=== PATIENT | female | born 1945 | race Caucasian/White ===

== ENCOUNTER 2020-07-13 11:18 | Inpatient (IN) | payer MEDICARE ==
[~2020-07-13 11:18] MED LIST: Iopamidol-370 76% 500 ML 1 ML ONE
--- NOTE | 2020-07-13 11:29 | CT ---
Exam: Head CT without contrast HISTORY: Sudden onset right facial droop and slurred speech at 10:00 AM. COMPARISON: 06/08/2009 FINDINGS: Hemorrhage: No intraparenchymal hemorrhage or extra-axial hematoma. Brain parenchyma: Cortical adame-white matter differentiation is preserved. No mass effect or midline shift. Basilar cisterns are patent.Extensive white matter hypodensities due to chronic small vessel ischemic change. Ventricular system: Ventricles and sulci are patent and symmetric. Calvarium: Intact. Sinuses and mastoid air cells: Adequate aeration. IMPRESSION: 1. No acute intracranial process 2. Results study discussed with Dr. Douglass 07/13/2020 at 11:25 AM Code CR
[2020-07-13 11:49] LABS: #Basophils 0.1 thou/uL (0.0-0.2); #Eosinphils 0.2 thou/uL (0.0-0.7); #Lymphocytes 2.5 thou/uL (1.20-3.40); #Monocytes 0.6 thou/uL (0.11-0.59); #Neutrophils 4.3 thou/uL (1.40-6.50); %Basophils 0.9 % (0.0-1.0); %Eosinophils 2.7 % (0.0-10.0); %Lymphocytes 32.3 % (21.0-51.0); %Monocytes 8.1 % (0.0-10.0); %Neutrophils 56.1 % (42.0-75.0); Hemoglobin 12.2 g/dL (12.0-16.0); Mean Corpuscular HGB CONC 34.7 g/dL (32.0-36.0); Mean Corpuscular Hemoglobin 30.5 pg (27.0-31.0); Mean Corpuscular Volume 87.9 fL (78.0-98.0); Mean Platelet Volume 6.5 fL (7.4-10.4); Platelet Count 319 thou/uL (130-400); RBC Distribution Width 11.9 % (11.5-14.5); Red Blood Cell (RBC) Count 3.99 mill/uL (4.20-5.40); White Blood Cell (WBC) Count 7.7 thou/uL (4.8-10.8)
[2020-07-13 12:02] LABS: PTT 27.7 sec (22.9-36.1); Prothrombin Time 13.4 sec (12.0-14.7)
--- NOTE | 2020-07-13 12:11 | RAD ---
EXAM: CHEST ONE VIEW HISTORY: Level 1 stroke alert. COMPARISON: 06/08/2009 FINDINGS: Cardiac silhouette is magnified by projection. Pulmonary vasculature is within normal limits. No cons olidation or pleural fluid is seen. There is mild prominence of the perihilar interstitial densities, this may be related to portable technique. Vascular calcifications are seen in the thoraci c aorta. Osseous structures have a normal appearance. IMPRESSION: Mild prominence of perihilar interstitial densities probably related to accentuation by portable tech nique. There is no consolidation or pleural fluid seen.
[2020-07-13 12:23] LABS: ALT (SGPT) 25 U/L (8-55); AST (SGOT) 29 U/L (5-34); Alkaline Phosphatase 60 U/L (40-110); Anion Gap 14 mmol/L (10-20); BUN (Urea Nitrogen) 18 mg/dL (9.8-20.1); Bilirubin, Total 0.9 mg/dL (0.2-1.2); CK (CPK) 303 U/L (29-168); Calc. Creatinine Clearance 0 mL/min (70-130); Calcium 9.2 mg/dL (7.8-10.44); Carbon Dioxide 21 mmol/L (23-31); Chloride 104 mmol/L (98-107); Glucose 109 mg/dL (83-110); Sodium 135 mmol/L (136-145)
--- NOTE | 2020-07-13 12:24 | CT ---
CT HEAD WITHOUT IV CONTRAST COMPARISON: 07/13/2020 1123 oh HISTORY: Post TPA administration. Neural status change. Augmentation changes. TECHNIQUE: Axial CT imaging at 5 mm intervals from vertex through skull base without contrast FINDINGS: Intravenous contrast administration was performed on CTA of the head on 07/13/2020 at 1132 hours. Ther e is persistent opacification of the vascular structures. This limits evaluation for subtle subarachnoid hemorrhage, but no definite intraparenchymal or extra-axial hemorrhage is appreciated. T here is no evidence of an acute infarction, hemorrhage, mass effect, or midline shift. Diminished attenuation is again seen in periventricular white matter likely reflective of chronic small vessel i schemic changes. Skull base has a normal CT appearance. Visualized paranasal sinuses are clear. Osseous structures appear intact.No other interval change. IMPRESSION: 1. No acute intracranial abnormality demonstrated. 2. Residual contrast within the vascular structures due to recent contrasted study which limits evalu ation for subtle subarachnoid hemorrhage. However, no obvious significant subarachnoid hemorrhage is visualized. No intraparenchymal hemorrhage is seen. 3. Chronic small vessel ischemic changes.
[2020-07-13 12:32] LABS: Globulin 2.6 g/dL (2.4-3.5); Protein, Total 6.6 g/dL (5.8-8.1)
[2020-07-13] MEDS ORDERED: Ondansetron PF 4 MG/2 ML Vial ONE (13:32)
[2020-07-13] MEDS ORDERED: Morphine 4 MG/ML VIAL ONE (13:32)
[2020-07-13 14:41] LABS: SARS-CoV-2 NAA Rapid Test Not Detected (NotDetected)
[2020-07-13 15:41] VITALS: BMI 24.2
[2020-07-13] MEDS ORDERED: Communication Order-Pharmacy FS SCH (15:48)
[2020-07-13] MEDS ORDERED: niCARdipine 25 MG in Sodium Chloride 0.9% 250 ML 250 ML IVPB PRN (15:48)
[2020-07-13] MEDS ORDERED: hydrALAZINE 20 MG/ML VIAL SLOW IVP PRN (15:48)
[2020-07-13] MEDS ORDERED: Ondansetron PF 4 MG/2 ML Vial IVP PRN (15:48)
[2020-07-13] MEDS ORDERED: Acetaminophen 325 MG TAB PO PRN (15:48)
[2020-07-13] MEDS ORDERED: Labetalol HCl 100 MG/20 ML VIAL SLOW IVP PRN (15:48)
[2020-07-13] MEDS ORDERED: hydrALAZINE 20 MG/ML VIAL ONE (15:58)
[2020-07-13] MEDS: Sodium Chloride 0.9% 1,000 ML IV SCH (17:48)
--- NOTE | 2020-07-13 18:39 | PDOC.HHP ---
Hospitalist HPI Difficulty speaking, Faical droop History of Present Illness: Patient is 74-year-old female with PMH of HTN, CAD, ?Renal artery stenosis, and hx of multiple TIA who presents to the ED with right facial droop and difficulty speaking that started around 10:00 AM this morning. Per , patient was also tearful and weak at that time and required communications assistant to walk. ED Course: On arrival to the ED NIHSS:6. CT head showed no acute intracranial abnormalities. CTA head and neck showed no hemodynamically significant stenosis. Patient received tPA while in the ED. CT head was repeated as patient reported severe RODRIGUEZ after she received tPA, it showed no obvious significant hemorrhage. Allergies/Adverse Reactions: Allergy/AdvReac Type Severity Reaction Status Date / Time codeine Allergy Verified 07/13/20 16:13 trifluoperazine Allergy Verified 07/13/20 16:13 [From Stelazine] Home Medications: Medication Instructions Recorded Confirmed Type Carvedilol [Coreg] 6.25 mg PO BID 07/13/20 07/13/20 History Cholecalciferol (Vitamin D3) 1,000 units PO DAILY 07/13/20 07/13/20 History [Vitamin D3] Clopidogrel Bisulfate [Clopidogrel] 75 mg PO DAILY 07/13/20 07/13/20 History Cyclobenzaprine [Flexeril] 10 mg PO PRN PRN 07/13/20 07/13/20 History Rosuvastatin [Crestor] 20 mg PO HS 07/13/20 07/13/20 History Zolpidem Tartrate [Ambien] 10 mg PO HS 07/13/20 07/13/20 History Past History: PMHx: HTN, CAD, ?Renal artery stenosis, and hx of multiple TIA PSHx: hysterectomy FHx: Sister: CVA, Father: CVA Social: no smoking, alcohol or drug use Hospitalist HPI ROS Constitutional: denies: fever, chills Respiratory: denies: shortness of breath Cardiovascular: denies: chest pain Gastrointestinal: reports: nausea. denies: vomiting Genitourinary: denies: dysuria Other: Positive for headache All other systems reviewed; all pertinent +/- noted in HPI/Subj Hospitalist Exam Vitals: Vital Signs (12 hours) Temp Pulse Resp BP Pulse Ox 07/13/20 16:29 65 07/13/20 16:00 97.8 F 07/13/20 15:59 65 07/13/20 15:49 97.6 F 65 18 100 07/13/20 15:31 100 07/13/20 15:23 100 07/13/20 15:11 97.6 F 65 16 107/88 95 Weight Weight 145 lb 8.081 oz Most Recent Monitor Data Heart Rate from ECG 80 NIBP 165/60 NIBP BP-Mean 95 Respiration from ECG 19 SpO2 100 General Appearance: NAD General - other findings: Tearful Eye: PERRL ENT: dry oral mucosa Neck: supple Heart: RRR, no murmur Respiratory: CTAB, no tachypnea Gastrointestinal: soft, non-tender, non-distended Extremities: no clubbing Skin: no rashes Neurological: normal sensation to touch Neurological - other findings: Minimal expressive aphasia, minimal right-sided facial droop Musculoskeletal: normal strength Psychiatric: oriented to person, oriented to place Psychiatric - other findings: Tearful Hospitalist Results Result Diagrams: 07/13/20 11:40 07/13/20 11:40 Lab results: Laboratory Last Values WBC 7.7 thou/uL (4.8-10.8) 07/13/20 11:40 RBC 3.99 mill/uL (4.20-5.40) L 07/13/20 11:40 Hgb 12.2 g/dL (12.0-16.0) 07/13/20 11:40 Hct 35.1 % (36.0-47.0) L 07/13/20 11:40 MCV 87.9 fL (78.0-98.0) 07/13/20 11:40 MCH 30.5 pg (27.0-31.0) 07/13/20 11:40 MCHC 34.7 g/dL (32.0-36.0) 07/13/20 11:40 RDW 11.9 % (11.5-14.5) 07/13/20 11:40 Plt Count 319 thou/uL (130-400) 07/13/20 11:40 MPV 6.5 fL (7.4-10.4) L 07/13/20 11:40 Neutrophils % 56.1 % (42.0-75.0) 07/13/20 11:40 Lymphocytes % 32.3 % (21.0-51.0) 07/13/20 11:40 Monocytes % 8.1 % (0.0-10.0) 07/13/20 11:40 Eosinophils % 2.7 % (0.0-10.0) 07/13/20 11:40 Basophils % 0.9 % (0.0-1.0) 07/13/20 11:40 Neutrophils # 4.3 thou/uL (1.40-6.50) 07/13/20 11:40 Lymphocytes # 2.5 thou/uL (1.20-3.40) 07/13/20 11:40 Monocytes # 0.6 thou/uL (0.11-0.59) H 07/13/20 11:40 Eosinophils # 0.2 thou/uL (0.0-0.7) 07/13/20 11:40 Basophils # 0.1 thou/uL (0.0-0.2) 07/13/20 11:40 PT 13.4 sec (12.0-14.7) 07/13/20 11:40 INR 1.0 07/13/20 11:40 APTT 27.7 sec (22.9-36.1) 07/13/20 11:40 Sodium 135 mmol/L (136-145) L 07/13/20 11:40 Potassium 4.0 mmol/L (3.5-5.1) 07/13/20 11:40 Chloride 104 mmol/L (98-107) 07/13/20 11:40 Carbon Dioxide 21 mmol/L (23-31) L 07/13/20 11:40 Anion Gap 14 mmol/L (10-20) 07/13/20 11:40 BUN 18 mg/dL (9.8-20.1) 07/13/20 11:40 Creatinine 1.01 mg/dL (0.6-1.1) 07/13/20 11:40 Estimated GFR (MDRD) 54 07/13/20 11:40 Glucose 109 mg/dL (83-110) 07/13/20 11:40 POC Glucose 101 mg/dL (70-100) H 07/13/20 11:27 Calcium 9.2 mg/dL (7.8-10.44) 07/13/20 11:40 Total Bilirubin 0.9 mg/dL (0.2-1.2) 07/13/20 11:40 AST 29 U/L (5-34) 07/13/20 11:40 ALT 25 U/L (8-55) 07/13/20 11:40 Alkaline Phosphatase 60 U/L (40-110) 07/13/20 11:40 Creatine Kinase 303 U/L (29-168) H 07/13/20 11:40 Troponin I 0.025 ng/mL (< 0.028) 07/13/20 11:40 Serum Total Protein 6.6 g/dL (5.8-8.1) 07/13/20 11:40 Albumin 4.0 g/dL (3.4-4.8) 07/13/20 11:40 Globulin 2.6 g/dL (2.4-3.5) 07/13/20 11:40 Albumin/Globulin Ratio 1.5 g/dL (1.2-2.2) 07/13/20 11:40 Influenza A RNA INAAT Not Detected (NotDetected) 07/13/20 13:15 Influenza B RNA INAAT Not Detected (NotDetected) 07/13/20 13:15 SARS-CoV-2 Rap RNA(RT-PCR) Not Detected (NotDetected) 07/13/20 13:15 Chest x-ray Status: image reviewed by me CT scan - head Status: image reviewed by oh Hospitalist H&P A/P (1) TIA (transient ischemic attack) Code(s): G45.9 - TRANSIENT CEREBRAL ISCHEMIC ATTACK, UNSPECIFIED Status: Acute Assessment and Plan: Patient's right-sided facial droop and expressive aphasia improved with tPA. Plan: -frequent Neuro checks -permissive HTN -no anticoagulation for 24 hr after tPA -Lipitor -MRI brain wo contrast, Echo -Neurology consulted (2) HTN (hypertension) Code(s): I10 - ESSENTIAL (PRIMARY) HYPERTENSION Status: Chronic Assessment and Plan: -permissive HTN due to above
[2020-07-13] MEDS: HYDROcodone/Acetaminophen 5/325 mg Tablet PO PRN (20:28)
[2020-07-13] MEDS ORDERED: Atorvastatin Calcium 40 MG TAB PO SCH (21:00)
[2020-07-14] MEDS: Sodium Chloride 0.9% 1,000 ML IV SCH ×2 (02:14→13:29)
[2020-07-14] MEDS ORDERED: Lorazepam 2 MG/ML VIAL SLOW IVP PRN (12:06)
--- NOTE | 2020-07-14 12:52 | CT ---
Exam: Head CT without contrast HISTORY: Status post TPA COMPARISON: 07/13/2020 FINDINGS: Hemorrhage: No intraparenchymal hemorrhage or extra-axial hematoma. Brain parenchyma: Cortical adame-white matter differentiation is preserved. No mass effect or midline shift. Basilar cisterns are patent.Stable chronic small vessel ischemic changes of the white matter Ventricular system: Ventricles and sulci are patent and symmetric. Calvarium: Intact. Sinuses and mastoid air cells: Adequate aeration. IMPRESSION: 1. No evidence of intracranial hemorrhage 2. Stable white matter hypodensities due to chronic small vessel ischemic changes 3. Cortical adame-white white matter differentiation is preserved.
--- NOTE | 2020-07-14 13:30 | MRI ---
Exam: Brain MRI without contrast HISTORY: Status post TPA 24 hours. CVA. COMPARISON: None FINDINGS: Calvarial marrow signal intensity: Appropriate T1 signal Gradient echo sequence: No hemorrhage Brain parenchyma: No mass, mass effect or midline shift. Brain volume, age-appropriate. Cortical adame-white matter differentiation: Preserved Restricted diffusion: Central arterial flow voids are maintained. Absent restricted diffusion White matter signal intensities:Extensive T2, FLAIR white matter hyperintensities due to chronic smal l vessel ischemic changes Sinuses: Adequate aeration of the paranasal sinuses and mastoid air cells. IMPRESSION: 1. Extensive chronic small vessel ischemic changes of the white matter 2. Absent restricted diffusion. No acute infarct.
--- NOTE | 2020-07-14 13:50 | CON ---
DATE OF CONSULTATION: 07/14/2020 REASON FOR CONSULTATION: Difficulty speaking, facial droop. HISTORY OF PRESENT ILLNESS: Ms. Jalloh is a 74-year-old female with medical history significant for hypertension, coronary artery disease, renal artery stenosis, and history of multiple transient ischemic attack presented to the emergency room with right facial droop and difficulty speaking at 10:00 a.m. on 07/13/2020. Per , the patient was tearful and weak and required assistance to walk. On arrival to the emergency room, her NIH Stroke Scale was 6. CT of the head did not show any acute intracranial pathology. CTA of the head and neck did not show hemodynamically significant stenosis. The patient received tPA, which was completed around 11:42 a.m. and then admitted for stroke workup and management. CT was repeated after she received tPA because she reported severe headache, but there was no hemorrhage. The patient denies nausea, vomiting, headache, chest pain, abdominal pain, recent illness or recent exposure to COVID-19. She does complain of numbness and tingling on the right side of the face with weakness of the right upper extremity. Allergies/Adverse Reactions: Allergy/AdvReac Type Severity Reaction Status Date / Time codeine Allergy Verified 07/13/20 16:13 trifluoperazine Allergy Verified 07/13/20 16:13 [From Stelazine] Home Medications: Medication Instructions Recorded Confirmed Type Carvedilol [Coreg] 6.25 mg PO BID 07/13/20 07/13/20 History Cholecalciferol (Vitamin D3) 1,000 units PO DAILY 07/13/20 07/13/20 History [Vitamin D3] Clopidogrel Bisulfate [Clopidogrel] 75 mg PO DAILY 07/13/20 07/13/20 History Cyclobenzaprine [Flexeril] 10 mg PO PRN PRN 07/13/20 07/13/20 History Rosuvastatin [Crestor] 20 mg PO HS 07/13/20 07/13/20 History Zolpidem Tartrate [Ambien] 10 mg PO HS 07/13/20 07/13/20 History PAST MEDICAL HISTORY: Hypertension, coronary artery disease, renal artery stenosis, history of multiple transient ischemic attacks. PAST SURGICAL HISTORY: Hysterectomy. FAMILY HISTORY: Sister has CVA. Father also has CVA. SOCIAL HISTORY: The patient denies smoking, alcohol, illegal drug use. , lives with her . REVIEW OF SYSTEMS: All systems reviewed and were negative except the pertinent positives and negatives mentioned in the HPI. Vital Signs & Weight: Vital Signs (12 hours) Temp Pulse Ox 07/14/20 13:00 97.9 F 07/14/20 08:16 100 07/14/20 08:00 98.4 F 07/14/20 07:21 100 Weight Weight 149 lb 7.574 oz Most Recent Monitor Data Heart Rate from ECG 83 NIBP 149/70 NIBP BP-Mean 96 Respiration from ECG 17 SpO2 100 I&O: 07/13/20 07/14/20 07/15/20 06:59 06:59 06:59 Intake Total 1702 100 Output Total 975 500 Balance 727 -400 Active Medications Generic Name Dose Route Start Last Admin Trade Name Freq PRN Reason Stop Dose Admin Hydrocodone Bitart/Acetaminophen 1 tab 07/13/20 15:48 07/13/20 20:28 Hydrocodone/Acetaminophen 5/325 Mg Tablet PO 1 tab Q4H PRN Administration Moderate Pain (4-6) Atorvastatin Calcium 80 mg 07/13/20 21:00 07/13/20 20:24 Atorvastatin Calcium 40 Mg Tab PO 80 mg HS SINDI Administration Hydralazine HCl 10 mg 07/13/20 15:48 07/13/20 15:59 Hydralazine 20 Mg/Ml Vial SLOW IVP 10 mg Q4H PRN Administration SBP > 180 or DBP > 105 Sodium Chloride 1,000 mls @ 100 mls/hr 07/13/20 17:30 07/14/20 13:29 Normal Saline 0.9% IV 1,000 mls .Q10H SINDI Administration Lorazepam 1 mg 07/14/20 12:06 07/14/20 12:45 Lorazepam 2 Mg/Ml Vial SLOW IVP 07/14/20 23:59 1 mg ONE PRN Administration MRI ANXIETY Ondansetron HCl 4 mg 07/13/20 15:48 07/13/20 20:28 Ondansetron Pf 4 Mg/2 Ml Vial IVP 4 mg Q6H PRN Administration Nausea/Vomiting PHYSICAL EXAMINATION: GENERAL APPEARANCE: AND. CVS: Regular rate and rhythm. CHEST: Clear. ABDOMEN: Soft. NECK: Supple. NEUROLOGIC: Mental Status: The patient is alert and oriented to person, place and time. Speech is clear. Cranial nerves 2 through 12 intact except 7, right facial droop and V - decreased sensation to light touch in the V1, V2 and V3 distribution. . Motor, muscle tone and bulk are normal. Strength 5/5 bilaterally except right upper extremity 4+/5. Sensory decreased sensation to light touch in the right upper extremity Cerebellar, finger-nose testing intact. Positive right pronator drift. Gait deferred due to patient's decreased sensation to light touch in the right upper extremity. Gait deferred due to patient's safety reason. DATA REVIEWED: We reviewed the labs, were significant for mild hyponatremia on admission at 135. CT scan did not reveal any acute intracranial pathology. Chest x-ray was essentially unremarkable. ASSESSMENT AND PLAN: (1) TIA (transient ischemic attack) Code(s): G45.9 - TRANSIENT CEREBRAL ISCHEMIC ATTACK, UNSPECIFIED Status: Acute (2) Acute metabolic encephalopathy Code(s): G93.41 - METABOLIC ENCEPHALOPATHY Status: Acute (3) HTN (hypertension) Code(s): I10 - ESSENTIAL (PRIMARY) HYPERTENSION Status: Chronic Qualifiers: Hypertension type: essential hypertension Qualified Code(s): I10 - Essential (primary) hypertension (4) HLD (hyperlipidemia) Code(s): E78.5 - HYPERLIPIDEMIA, UNSPECIFIED Status: Chronic Ms. Ashleigh Jalloh is a 74-year-old female who was consulted because of difficulty speaking and stroke-like symptoms including the right- sided focal deficits. She received tPA and has been doing well, and according to her, the deficits have improved since admission. Continue neuro checks every 2 hours. MRI of the brain pending at this time to assess acute intracranial process. Continue telemetry to rule out arrhythmias. Avoid antiplatelets and anticoagulants until 24 hours post tPA. Awaiting head CT 24 hours of tPA. If negative, then start aspirin and statin for secondary stroke prevention. Check hemoglobin A1c, fasting lipid panel, and TSH. Continue home medications. Permissive control of blood pressure at this time. Strict control of blood glucose. Continue aspirin and high- intensity statin for secondary stroke prevention. PT/OT/Speech. Continue medical management per primary team. We will continue to follow. Thank you for the consult. Plan discussed in detail with the patient, at bedside, nursing staff and the primary attending, Dr. Lew. Job ID: [id number] [facility]
--- NOTE | 2020-07-14 15:23 | PDOC.HOSPP ---
- Subjective Encounter Date: 07/14/20 Encounter Time: 15:00 Subjective: f/u for TIA/CVA s/p tPA with CT/MRI brain showing no acute process. c/o some confusion and weakness. States she wants to eat. - Objective Vital Signs & Weight: Vital Signs (12 hours) Temp Pulse Ox 07/14/20 13:00 97.9 F 07/14/20 08:16 100 07/14/20 08:00 98.4 F 07/14/20 07:21 100 Weight Weight 149 lb 7.574 oz Most Recent Monitor Data Heart Rate from ECG 83 NIBP 149/70 NIBP BP-Mean 96 Respiration from ECG 17 SpO2 100 I&O: 07/13/20 07/14/20 07/15/20 06:59 06:59 06:59 Intake Total 1702 100 Output Total 975 500 Balance 727 -400 Result Diagrams: 07/13/20 11:40 07/13/20 11:40 Radiology Reviewed by me: Yes (MRI brain - no acute process, chronic isch changes) EKG Reviewed by me: Yes (Tele - SR) Hospitalist ROS - Medication Medications: Active Medications Generic Name Dose Route Start Last Admin Trade Name Freq PRN Reason Stop Dose Admin Hydrocodone Bitart/Acetaminophen 1 tab 07/13/20 15:48 07/13/20 20:28 Hydrocodone/Acetaminophen 5/325 Mg Tablet PO 1 tab Q4H PRN Administration Moderate Pain (4-6) Atorvastatin Calcium 80 mg 07/13/20 21:00 07/13/20 20:24 Atorvastatin Calcium 40 Mg Tab PO 80 mg HS SINDI Administration Hydralazine HCl 10 mg 07/13/20 15:48 07/13/20 15:59 Hydralazine 20 Mg/Ml Vial SLOW IVP 10 mg Q4H PRN Administration SBP > 180 or DBP > 105 Sodium Chloride 1,000 mls @ 100 mls/hr 07/13/20 17:30 07/14/20 13:29 Normal Saline 0.9% IV 1,000 mls .Q10H SINDI Administration Lorazepam 1 mg 07/14/20 12:06 07/14/20 12:45 Lorazepam 2 Mg/Ml Vial SLOW IVP 07/14/20 23:59 1 mg ONE PRN Administration MRI ANXIETY Ondansetron HCl 4 mg 07/13/20 15:48 07/13/20 20:28 Ondansetron Pf 4 Mg/2 Ml Vial IVP 4 mg Q6H PRN Administration Nausea/Vomiting Hospitalist Exam Vitals: Vital Signs (12 hours) Temp Pulse Ox 07/14/20 13:00 97.9 F 07/14/20 08:16 100 07/14/20 08:00 98.4 F 07/14/20 07:21 100 Weight Weight 149 lb 7.574 oz Most Recent Monitor Data Heart Rate from ECG 83 NIBP 149/70 NIBP BP-Mean 96 Respiration from ECG 17 SpO2 100 General Appearance: NAD, awake alert Eye: PERRL, anicteric sclera ENT: normocephalic atraumatic, no oropharyngeal lesions Neck: supple, symmetric, no JVD, no thyromegaly, no lymphadenopathy Heart: RRR, no gallops, no rubs, normal peripheral pulses Heart - other findings: S1, S2 Respiratory: CTAB, no wheezes, no rales, no ronchi, normal chest expansion Gastrointestinal: soft, non-tender, non-distended, normal bowel sounds, no palpable masses Extremities: no cyanosis, no clubbing, no edema Skin: normal turgor, no lesions Neurological: cranial nerve grossly intact, no new deficit Musculoskeletal: normal tone, generalized weakness Psychiatric: A&O x 3, flat affect Hosp A/P (1) TIA (transient ischemic attack) Code(s): G45.9 - TRANSIENT CEREBRAL ISCHEMIC ATTACK, UNSPECIFIED Status: Acute Plan: Suspected, MRI brain negative, continue Plavix/Crestor (2) Acute metabolic encephalopathy Code(s): G93.41 - METABOLIC ENCEPHALOPATHY Status: Acute Plan: ? Iatrogenic vs HTN encephalopathy, limit sedation/narcotics/psychotropes (3) HTN (hypertension) Code(s): I10 - ESSENTIAL (PRIMARY) HYPERTENSION Status: Chronic Qualifiers: Hypertension type: essential hypertension Qualified Code(s): I10 - Essential (primary) hypertension Plan: Resume home Coreg, serial BP monitoring (4) HLD (hyperlipidemia) Code(s): E78.5 - HYPERLIPIDEMIA, UNSPECIFIED Status: Chronic Plan: Resume home Crestor - Plan plan discussed w/ family, PT/OT, speech therapy, out of bed/ambulate, DVT proph w/SCDs Stable overall Resume home Coreg Resume Crestor WATCH INSPECTOR evaluation OOB/ambulate Transfer to Stroke unit Likely home in am
[2020-07-14] MEDS ORDERED: Cyclobenzaprine 10 MG TAB PO PRN (15:25)
[2020-07-14] MEDS: Rosuvastatin 20 MG TAB PO SCH (20:03)
[2020-07-14] MEDS: Carvedilol 6.25 MG TAB PO SCH (20:03)
[2020-07-15] MEDS: HYDROcodone/Acetaminophen 5/325 mg Tablet PO PRN ×2 (02:47→09:53)
[2020-07-15 05:10] LABS: #Basophils 0.1 thou/uL (0.0-0.2); #Eosinphils 0.3 thou/uL (0.0-0.7); #Monocytes 0.7 thou/uL (0.11-0.59); #Neutrophils 5.1 thou/uL (1.40-6.50); %Basophils 0.8 % (0.0-1.0); %Eosinophils 3.8 % (0.0-10.0); %Lymphocytes 32.5 % (21.0-51.0); %Monocytes 7.5 % (0.0-10.0); %Neutrophils 55.4 % (42.0-75.0); Hemoglobin 11.5 g/dL (12.0-16.0); Mean Corpuscular HGB CONC 34.8 g/dL (32.0-36.0); Mean Corpuscular Hemoglobin 31.1 pg (27.0-31.0); Mean Corpuscular Volume 89.4 fL (78.0-98.0); Mean Platelet Volume 6.5 fL (7.4-10.4); Platelet Count 290 thou/uL (130-400); White Blood Cell (WBC) Count 9.1 thou/uL (4.8-10.8)
[2020-07-15 05:18] LABS: Anion Gap 9 mmol/L (10-20); BUN (Urea Nitrogen) 17 mg/dL (9.8-20.1); Calc. Creatinine Clearance 52 mL/min (70-130); Carbon Dioxide 25 mmol/L (23-31); Chloride 107 mmol/L (98-107); Glucose 111 mg/dL (83-110); Potassium 3.5 mmol/L (3.5-5.1); Sodium 137 mmol/L (136-145)
[2020-07-15] MEDS: Clopidogrel Bisulfate 75 MG TAB PO SCH (09:51)
[2020-07-15] MEDS: Cholecalciferol 1,000 UNITS (25 MCG) TAB PO SCH (09:51)
[2020-07-15] MEDS: Carvedilol 6.25 MG TAB PO SCH ×2 (09:51→20:39)
--- NOTE | 2020-07-15 12:03 | PDOC.NEUPN ---
- Subjective Encounter Date: 07/15/20 Subjective: Ashleigh Jalloh is feeling better today and symptoms have been improved since admission. at bedside. - Objective Vital Signs & Weight: Vital Signs (12 hours) Temp Pulse Resp BP BP BP BP 07/15/20 11:11 97.9 F 63 20 155/68 H 07/15/20 09:51 144/66 H 07/15/20 08:06 97.9 F 66 18 144/66 H 07/15/20 02:45 98.7 F 72 16 144/71 H Pulse Ox 07/15/20 11:11 98 07/15/20 09:51 07/15/20 08:06 97 07/15/20 02:45 95 Weight Weight 146 lb 9.718 oz Most Recent Monitor Data Heart Rate from ECG 75 NIBP 122/56 NIBP BP-Mean 78 Respiration from ECG 12 SpO2 100 I&O: 07/14/20 07/15/20 07/16/20 06:59 06:59 06:59 Intake Total 1702 1294 Output Total 975 500 Balance 727 794 Result Diagrams: 07/15/20 04:51 07/15/20 04:51 Radiology Reviewed by me: Yes EKG Reviewed by me: Yes ROS - Review of Systems Constitutional: denies: fever, chills, sweats, weakness, malaise, other Eyes: denies: pain, vision change, conjunctivae inflammation, eyelid inflammation, redness, other ENT: denies: ear pain, ear discharge, nose pain, nose discharge, nose congestion, mouth pain, mouth swelling, throat pain, throat swelling, other Respiratory: denies: cough, dry, shortness of breath, hemoptysis, SOB with excertion, pleuritic pain, sputum, wheezing, other Gastrointestinal: denies: nausea, vomiting, abdominal pain, diarrhea, constipation, melena, hematochezia, other Genitourinary: denies: dysuria, frequency, incontinence, hematuria, retention, other Musculoskeletal: denies: neck pain, shoulder pain, arm pain, back pain, hand pain, leg pain, foot pain, other Neurological: reports: numbness. denies: weakness, incoordination, change in speech, confusion, seizures, other - Medication Medications: Active Medications Generic Name Dose Route Start Last Admin Trade Name Freq PRN Reason Stop Dose Admin Hydrocodone Bitart/Acetaminophen 1 tab 07/13/20 15:48 07/15/20 09:53 Hydrocodone/Acetaminophen 5/325 Mg Tablet PO 1 tab Q4H PRN Administration Moderate Pain (4-6) Carvedilol 6.25 mg 07/14/20 21:00 07/15/20 09:51 Carvedilol 6.25 Mg Tab PO 6.25 mg BID SINDI Administration Cholecalciferol 1,000 units 07/15/20 09:00 07/15/20 09:51 Cholecalciferol 1,000 Units (25 Mcg) Tab PO 1,000 units DAILY SINDI Administration Clopidogrel Bisulfate 75 mg 07/15/20 09:00 07/15/20 09:51 Clopidogrel Bisulfate 75 Mg Tab PO 75 mg DAILY SINDI Administration Hydralazine HCl 10 mg 07/13/20 15:48 07/13/20 15:59 Hydralazine 20 Mg/Ml Vial SLOW IVP 10 mg Q4H PRN Administration SBP > 180 or DBP > 105 Ondansetron HCl 4 mg 07/13/20 15:48 07/13/20 20:28 Ondansetron Pf 4 Mg/2 Ml Vial IVP 4 mg Q6H PRN Administration Nausea/Vomiting Rosuvastatin Calcium 20 mg 07/14/20 21:00 07/14/20 20:03 Rosuvastatin 20 Mg Tab PO 20 mg HS SINDI Administration - Exam General Appearance: awake alert Eye: PERRL ENT: normocephalic atraumatic Neck: supple Respiratory: CTAB Cardiovascular: RRR Gastrointestinal: soft Extremities: no cyanosis Skin: normal turgor Neurological: no new deficit Musculoskeletal: normal tone, normal strength, no muscle wasting PSYCH: normal affect, normal behavior, A&O x 3 Results - Labs Result Diagrams: 07/15/20 04:51 07/15/20 04:51 Lab results: WBC 9.1 thou/uL (4.8-10.8) 07/15/20 04:51 Hgb 11.5 g/dL (12.0-16.0) L 07/15/20 04:51 Hct 33.0 % (36.0-47.0) L 07/15/20 04:51 MCV 89.4 fL (78.0-98.0) 07/15/20 04:51 Plt Count 290 thou/uL (130-400) 07/15/20 04:51 Neutrophils % 55.4 % (42.0-75.0) 07/15/20 04:51 Sodium 137 mmol/L (136-145) 07/15/20 04:51 Potassium 3.5 mmol/L (3.5-5.1) 07/15/20 04:51 Chloride 107 mmol/L (98-107) 07/15/20 04:51 Carbon Dioxide 25 mmol/L (23-31) 07/15/20 04:51 BUN 17 mg/dL (9.8-20.1) 07/15/20 04:51 Creatinine 1.01 mg/dL (0.6-1.1) 07/15/20 04:51 Glucose 111 mg/dL (83-110) H 07/15/20 04:51 Calcium 8.0 mg/dL (7.8-10.44) 07/15/20 04:51 Total Bilirubin 0.9 mg/dL (0.2-1.2) 07/13/20 11:40 AST 29 U/L (5-34) 07/13/20 11:40 ALT 25 U/L (8-55) 07/13/20 11:40 Alkaline Phosphatase 60 U/L (40-110) 07/13/20 11:40 Creatine Kinase 303 U/L (29-168) H 07/13/20 11:40 Troponin I 0.025 ng/mL (< 0.028) 07/13/20 11:40 Serum Total Protein 6.6 g/dL (5.8-8.1) 07/13/20 11:40 Albumin 4.0 g/dL (3.4-4.8) 07/13/20 11:40 - Radiology Interpretation MRI - head Additional Comment: MRI of the head reviewed which was negative for acute intracranial pathology PN A/P (1) TIA (transient ischemic attack) Code(s): G45.9 - TRANSIENT CEREBRAL ISCHEMIC ATTACK, UNSPECIFIED Status: Acute (2) Acute metabolic encephalopathy Code(s): G93.41 - METABOLIC ENCEPHALOPATHY Status: Acute (3) HLD (hyperlipidemia) Code(s): E78.5 - HYPERLIPIDEMIA, UNSPECIFIED Status: Chronic (4) HTN (hypertension) Code(s): I10 - ESSENTIAL (PRIMARY) HYPERTENSION Status: Chronic Qualifiers: Hypertension type: essential hypertension Qualified Code(s): I10 - Essential (primary) hypertension - Plan Daily Plan: plan discussed w/ family, PT/OT ( at bedside), speech t herapy, out of bed/ambulate Mrs. Jalloh is a 74-year-old female who presented with strokelike symptoms this seems to be improved since admission. Most likely transient ischemic attack. She is status post TPA and has been doing well. MRI of the brain reviewed which was negative for acute intracranial pathology. CTA of the head and neck did not reveal hemodynamically significant stenosis. 2D echocardiogram showed left ventricular ejection fraction 50 to 55%. No thrombus or PFO. Neurochecks every 4 hours. Continue aspirin high intensity statin for secondary stroke prevention. Telemetry to rule out arrhythmias. EEG to evaluate for confusion is ongoing. We will follow up on the results. PT/OT/speech Continue home medications. Strict control of blood pressure and blood glucose. Continue medical management per primary team. DVT prophylaxis Plan and results were discussed in detail with the patient, at bedside and also with the nursing staff.
--- NOTE | 2020-07-15 12:17 | PDOC.HOSPP ---
- Subjective Encounter Date: 07/15/20 Encounter Time: 09:00 Subjective: Patient seen this morning. She has some headache. She lives with her family. She is complaining of left side arm going numb. Is almost like falling asleep. This is not new it happened before as well. - Objective Vital Signs & Weight: Vital Signs (12 hours) Temp Pulse Resp BP BP BP BP 07/15/20 11:11 97.9 F 63 20 155/68 H 07/15/20 09:51 144/66 H 07/15/20 08:06 97.9 F 66 18 144/66 H 07/15/20 02:45 98.7 F 72 16 144/71 H Pulse Ox 07/15/20 11:11 98 07/15/20 09:51 07/15/20 08:06 97 07/15/20 02:45 95 Weight Weight 146 lb 9.718 oz Most Recent Monitor Data Heart Rate from ECG 75 NIBP 122/56 NIBP BP-Mean 78 Respiration from ECG 12 SpO2 100 I&O: 07/14/20 07/15/20 07/16/20 06:59 06:59 06:59 Intake Total 1702 1294 Output Total 975 500 Balance 727 794 Result Diagrams: 07/15/20 04:51 07/15/20 04:51 Hospitalist ROS - Medication Medications: Active Medications Generic Name Dose Route Start Last Admin Trade Name Freq PRN Reason Stop Dose Admin Hydrocodone Bitart/Acetaminophen 1 tab 07/13/20 15:48 07/15/20 09:53 Hydrocodone/Acetaminophen 5/325 Mg Tablet PO 1 tab Q4H PRN Administration Moderate Pain (4-6) Carvedilol 6.25 mg 07/14/20 21:00 07/15/20 09:51 Carvedilol 6.25 Mg Tab PO 6.25 mg BID SINDI Administration Cholecalciferol 1,000 units 07/15/20 09:00 07/15/20 09:51 Cholecalciferol 1,000 Units (25 Mcg) Tab PO 1,000 units DAILY SINDI Administration Clopidogrel Bisulfate 75 mg 07/15/20 09:00 07/15/20 09:51 Clopidogrel Bisulfate 75 Mg Tab PO 75 mg DAILY SINDI Administration Hydralazine HCl 10 mg 07/13/20 15:48 07/13/20 15:59 Hydralazine 20 Mg/Ml Vial SLOW IVP 10 mg Q4H PRN Administration SBP > 180 or DBP > 105 Ondansetron HCl 4 mg 07/13/20 15:48 07/13/20 20:28 Ondansetron Pf 4 Mg/2 Ml Vial IVP 4 mg Q6H PRN Administration Nausea/Vomiting Rosuvastatin Calcium 20 mg 07/14/20 21:00 07/14/20 20:03 Rosuvastatin 20 Mg Tab PO 20 mg HS SINDI Administration Hospitalist Exam Vitals: Vital Signs (12 hours) Temp Pulse Resp BP BP BP BP 07/15/20 11:11 97.9 F 63 20 155/68 H 07/15/20 09:51 144/66 H 07/15/20 08:06 97.9 F 66 18 144/66 H 07/15/20 02:45 98.7 F 72 16 144/71 H Pulse Ox 07/15/20 11:11 98 07/15/20 09:51 07/15/20 08:06 97 07/15/20 02:45 95 Weight Weight 146 lb 9.718 oz Most Recent Monitor Data Heart Rate from ECG 75 NIBP 122/56 NIBP BP-Mean 78 Respiration from ECG 12 SpO2 100 General Appearance: NAD, awake alert Eye: PERRL ENT: normocephalic atraumatic Neck: supple Heart: RRR, normal peripheral pulses Respiratory: CTAB, normal chest expansion Gastrointestinal: soft, normal bowel sounds Neurological: cranial nerve grossly intact, no focal deficits Psychiatric: normal affect, normal behavior, A&O x 3 Hosp A/P - Plan TIA (transient ischemic attack) Code(s): G45.9 - TRANSIENT CEREBRAL ISCHEMIC ATTACK, UNSPECIFIED Status: Acute Plan: Suspected, MRI brain negative, continue Plavix/Crestor (2) Acute metabolic encephalopathy Code(s): G93.41 - METABOLIC ENCEPHALOPATHY Status: Acute Plan: ? 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 Brain MRI showed chronic small vessel ischemic changes of the white matter. -Getting CT cervical spine to rule out any disc degeneration causing nerve impingement etc. Follow-up on TSH A1c lipid panel as well as vitamin D B12 folate Ongoing physical therapy Covid negative
[2020-07-15 13:55] LABS: Hemoglobin A1c 5.4 % (4.0-6.0)
[2020-07-15 14:26] LABS: Vitamin D, 25 Hydroxy 52.3 ng/ml (> 30.0)
--- NOTE | 2020-07-15 14:28 | PDOC.EEG ---
Neurology EEG Report - Report Report: This EEG was performed using 24 channel Solvate video digital EEG machine with 24 disc electrodes. Digital analysis of the EEG was done for Chong and seizure detection which revealed no abnormalities. Background: Ther posterior background rhythm is 10-12 Hz. Minimal reactivity seen with eye opening and closure. Hyperventilation: Not performed Photic stimulation: No significant response Sleep: Drowsiness is observed EEG diagnosis: Normal awake and drowsy EEG.
[2020-07-15 14:32] LABS: Thyroid Stimulating Hormone 2.7923 uIU/mL (0.35-4.94)
--- NOTE | 2020-07-15 15:37 | CT ---
EXAM: CT ANGIOGRAM OF THE NECK INDICATION: Left-sided hemiparesthesia, neck pain, headache and dizziness. COMPARISON: 07/13/2020 TECHNIQUE: CT angiogram of the neck are performed in the axial plane. Three-dimensional reformatted i mages are submitted for interpretation. FINDINGS: POSTCONTRAST SOFT TISSUE NECK CT: Aerodigestive tract:Aerodigestive tract is patent. No mucosal abnormality. No significant change Sinuses: Stable aeration. Orbits: Bilateral ocular lenses implants are appropriately located. Both globes are intact. Retrobulb ar fat is preserved. Symmetric attenuation the optic nerves and ocular rectus muscles. Salivary glands:Stable attenuation. 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 Paraspinal muscles: Symmetric attenuation of the sternocleidomastoid muscles. Appropriate attenuation of the paraspinal muscles. Cervical spine:Vertebral body height is maintained. No fracture. No significant central canal stenosi s or significant neural foraminal narrowing. Limited evaluation by technique. Upper mediastinum and lung apices: No significant interval change. CTA OF THE NECK WITH CONTRAST: Aorta: Stable atherosclerosis. Stable common origin of the carotid arteries. Right carotid artery: Stable atherosclerotic disease. No significant stenosis based upon NASCET crite douglas. Left carotid: Stable atherosclerotic disease. No significant stenosis based upon NASCET criteria. Sta ble mild narrowing of left carotid bifurcation and proximal internal carotid artery due to calcified and noncalcified plaque. Subclavian arteries:6 symmetric and patent Vertebral arteries:Redemonstration of a dominant right vertebral artery. 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 IMPRESSION: 1. No hemodynamically significant stenosis based upon NASCET criteria. 2. No significant interval change. Transcribed Date/Time: 07/15/2020 3:48 PM
[2020-07-15] MEDS: Rosuvastatin 20 MG TAB PO SCH (20:40)
[2020-07-16 05:16] LABS: #Basophils 0.1 thou/uL (0.0-0.2); #Eosinphils 0.5 thou/uL (0.0-0.7); #Lymphocytes 3.2 thou/uL (1.20-3.40); #Monocytes 0.9 thou/uL (0.11-0.59); %Basophils 0.8 % (0.0-1.0); %Eosinophils 4.5 % (0.0-10.0); %Lymphocytes 30.3 % (21.0-51.0); %Neutrophils 56.5 % (42.0-75.0); Hemoglobin 12.2 g/dL (12.0-16.0); Mean Corpuscular HGB CONC 34.9 g/dL (32.0-36.0); Mean Corpuscular Hemoglobin 31.1 pg (27.0-31.0); Mean Corpuscular Volume 89.1 fL (78.0-98.0); Mean Platelet Volume 6.6 fL (7.4-10.4); Platelet Count 297 thou/uL (130-400); Red Blood Cell (RBC) Count 3.91 mill/uL (4.20-5.40); White Blood Cell (WBC) Count 10.6 thou/uL (4.8-10.8)
[2020-07-16 05:37] LABS: Anion Gap 12 mmol/L (10-20); BUN (Urea Nitrogen) 12 mg/dL (9.8-20.1); Calc. Creatinine Clearance 56 mL/min (70-130); Calcium 8.4 mg/dL (7.8-10.44); Carbon Dioxide 22 mmol/L (23-31); Chloride 107 mmol/L (98-107); Cholesterol 136 mg/dl (< 200 Desired); Glucose 108 mg/dL (83-110); HDL Cholesterol 45 mg/dL (>60 Neg Risk); LDL Cholesterol, Calculated 64 mg/dL; Potassium 3.7 mmol/L (3.5-5.1); Sodium 137 mmol/L (136-145); Triglycerides 136 mg/dL (Less than 150)
[2020-07-16] MEDS: Carvedilol 6.25 MG TAB PO SCH ×2 (08:17→21:45)
[2020-07-16] MEDS: Clopidogrel Bisulfate 75 MG TAB PO SCH (08:17)
[2020-07-16] MEDS: Cholecalciferol 1,000 UNITS (25 MCG) TAB PO SCH (08:17)
[2020-07-16] MEDS: HYDROcodone/Acetaminophen 5/325 mg Tablet PO PRN (08:20)
[2020-07-16] MEDS ORDERED: hydrALAZINE 25 MG TAB PO SCH (09:00)
--- NOTE | 2020-07-16 11:58 | PDOC.HOSPP ---
- Subjective Encounter Date: 07/16/20 Encounter Time: 09:10 Subjective: Patient's left hand swollen due to IV access. She also has IV access on the left cubital area; talk to the physical therapist appreciate their input in time patient's blood pressure is quite labile when she is sitting her blood pressure is 140 systolic then when she walks around pressure drop increased to 170 on then drops to 120. Asymptomatic with the dizziness. PT recommended inpatient rehab. Getting TSH random cortisol. - Objective Vital Signs & Weight: Vital Signs (12 hours) Temp Pulse Resp BP BP BP BP 07/16/20 11:01 145/83 H 07/16/20 10:59 145/83 H 160/104 H 185/77 H 07/16/20 07:27 97.8 F 60 16 158/85 H 07/16/20 03:43 97.9 F 76 16 151/76 H Pulse Ox 07/16/20 11:01 07/16/20 10:59 07/16/20 07:27 98 07/16/20 03:43 97 Weight Weight 154 lb 12.232 oz Most Recent Monitor Data Heart Rate from ECG 75 NIBP 122/56 NIBP BP-Mean 78 Respiration from ECG 12 SpO2 100 I&O: 07/15/20 07/16/20 07/17/20 06:59 06:59 06:59 Intake Total 1294 620 Output Total 500 Balance 794 620 Result Diagrams: 07/16/20 05:01 07/16/20 05:01 Hospitalist ROS - Medication Medications: Active Medications Generic Name Dose Route Start Last Admin Trade Name Freq PRN Reason Stop Dose Admin Hydrocodone Bitart/Acetaminophen 1 tab 07/13/20 15:48 07/16/20 08:20 Hydrocodone/Acetaminophen 5/325 Mg Tablet PO 1 tab Q4H PRN Administration Moderate Pain (4-6) Cholecalciferol 1,000 units 07/15/20 09:00 07/16/20 08:17 Cholecalciferol 1,000 Units (25 Mcg) Tab PO 1,000 units DAILY SINDI Administration Clopidogrel Bisulfate 75 mg 07/15/20 09:00 07/16/20 08:17 Clopidogrel Bisulfate 75 Mg Tab PO 75 mg DAILY SINDI Administration Hydralazine HCl 10 mg 07/13/20 15:48 07/13/20 15:59 Hydralazine 20 Mg/Ml Vial SLOW IVP 10 mg Q4H PRN Administration SBP > 180 or DBP > 105 Hydralazine HCl 25 mg 07/16/20 09:00 07/16/20 11:01 Hydralazine 25 Mg Tab PO 25 mg QID SINDI Administration Ondansetron HCl 4 mg 07/13/20 15:48 07/13/20 20:28 Ondansetron Pf 4 Mg/2 Ml Vial IVP 4 mg Q6H PRN Administration Nausea/Vomiting Rosuvastatin Calcium 20 mg 07/14/20 21:00 07/15/20 20:40 Rosuvastatin 20 Mg Tab PO 20 mg HS SINDI Administration Hospitalist Exam Vitals: Vital Signs (12 hours) Temp Pulse Resp BP BP BP BP 07/16/20 11:01 145/83 H 07/16/20 10:59 145/83 H 160/104 H 185/77 H 07/16/20 07:27 97.8 F 60 16 158/85 H 07/16/20 03:43 97.9 F 76 16 151/76 H Pulse Ox 07/16/20 11:01 07/16/20 10:59 07/16/20 07:27 98 07/16/20 03:43 97 Weight Weight 154 lb 12.232 oz Most Recent Monitor Data Heart Rate from ECG 75 NIBP 122/56 NIBP BP-Mean 78 Respiration from ECG 12 SpO2 100 General Appearance: NAD, awake alert Eye: PERRL ENT: normocephalic atraumatic Neck: supple, no carotid bruit Heart: RRR, irregular Respiratory: CTAB, normal chest expansion Gastrointestinal: soft, normal bowel sounds Extremities - other findings: To hand swollen due to IV access Neurological: cranial nerve grossly intact, no new deficit Psychiatric: A&O x 3 Hosp A/P - Plan TIA (transient ischemic attack) Code(s): G45.9 - TRANSIENT CEREBRAL ISCHEMIC ATTACK, UNSPECIFIED Status: Acute Plan: Suspected, MRI brain negative, continue Plavix/Crestor (2) Acute metabolic encephalopathy Code(s): G93.41 - METABOLIC ENCEPHALOPATHY Status: Acute Plan: ? Iatrogenic vs HTN encephalopathy, limit sedation/narcotics/psychotropes (3) HTN (hypertension) Code(s): I10 - ESSENTIAL (PRIMARY) HYPERTENSION Status: Chronic Qualifiers: Hypertension type: essential hypertension Qualified Code(s): I10 - Essent ial (primary) hypertension Plan: Resume home Coreg, serial BP monitoring (4) HLD (hyperlipidemia) Code(s): E78.5 - HYPERLIPIDEMIA, UNSPECIFIED Status: Chronic Plan: Resume home Crestor - Plan plan discussed w/ family, PT/OT, speech therapy, out of bed/ambulate, DVT proph w/SCDs Stable overall Resume home Coreg Resume Crestor MUSIC ENGRAVER evaluation OOB/ambulate Transfer to Stroke unit Left hemianesthesia,chronic Echo showed EF of 60% normal left atrium and left ventricle. Brain MRI showed chronic small vessel ischemic changes of the white matter. -Getting CT cervical spine to rule out any disc degeneration causing nerve impingement etc. Follow-up on TSH A1c lipid panel as well as vitamin D B12 folate------------------> all in normal range Ongoing physical therapy Covid negative Labile blood pressure -Getting orthostatic vitals -Patient is symptomatic with variable blood pressure especially with exertion. talk to the physical therapist appreciate their input in time patient's blood pressure is quite labile when she is sitting her blood pressure is 140 systolic then when she walks around pressure drop increased to 170 on then drops to 120. Asymptomatic with the dizziness. Gettingrandom cortisol. Echo with normal EF Appreciate cardiology input PT recommended inpatient rehab.
--- NOTE | 2020-07-16 14:05 | CT ---
EXAM: CT cervical spine PROVIDED CLINICAL HISTORY: Left-sided hemianesthesia. Possible cervical stenosis. TECHNIQUE: Contiguous axial CT images are obtained through the cervical spine from the skull base to the T3 leve l. Sagittal and coronal reformatted images are provided. COMPARISON: None FINDINGS: Multilevel degenerative changes are seen in the cervical spine. There is narrowing of the interverteb ral disc spaces extending from the C3-4 level to the C5-6 level and to a lesser extent at the C6-7 level. C2-3 level: No bony encroachment central spinal canal or neural foramina. C3-4 level: Broad-based disc osteophyte complex mildly effacing the ventral subarachnoid space. Uncin ate process hypertrophy is present. There is mild/moderate right and moderate left-sided neural foraminal narrowing primarily related to bony encroachment. C4-5 level: Moderate endplate degenerative changes are present at this level. There is a broad-based disc osteophyte complex with prominent uncinate process hypertrophy on the right. There is effacement of ventral subarachnoid space with encroachment on the right anterolateral aspect of the s rosita cord. Moderate right and mild left-sided neural foraminal narrowing are present related to bony encroachment. C5-6 level: Disc osteophyte complex is present which narrows the ventral subarachnoid space and encro aches on the anterior aspect of the spinal cord. Mild/moderate bilateral neural foraminal narrowing is present. C6-7 level: No significant central canal narrowing. Mild left-sided neural foraminal narrowing is pre sent due to osteophyte formation laterally. Right neural foramen is patent. C7-T1 level: Central spinal canal and neural foramina are patent. No fracture or traumatic subluxation is seen involving the cervical spine. No prevertebral soft tissue swelling apparent. Visualized lung apices are clear aside from minimal biapical pleural and parenchymal scarring which i s minimally calcified. Limited evaluation due to artifact extending through this region. No discrete nodule is able to be de lineated. IMPRESSION: Degenerative changes seen throughout the cervical spine. Varying degrees of neural foraminal narrowin g are present primarily related to bony encroachment as described above. No fracture or subluxation involving the cervical spine.
[2020-07-16] MEDS: hydrALAZINE 25 MG TAB PO SCH ×2 (15:35→21:45)
[2020-07-16] MEDS: Rosuvastatin 20 MG TAB PO SCH (21:45)
--- NOTE | 2020-07-16 22:31 | CON ---
DATE OF CONSULTATION: 07/16/2020 REASON FOR CONSULTATION: Hypertension. HISTORY OF PRESENT ILLNESS: Ms. Jalloh is a pleasant 74-year-old female who presents to the emergency room on July 13 for a complaint of right facial droop and difficulty speaking while she was working. Her coworker called 911. She was given tPA in the emergency room, and her CT showed no intracranial abnormalities in the emergency room. MRI of her brain also showed no acute infarcts. She states that she has had several episodes like this in the past that would resolve quickly, but this one did not resolve as quickly as her others have and since it was noted by coworker, it was decided that she will call 911 and came to the emergency room. Today, she states that while working with Physical Therapy, the first day that she has worked with Physical Therapy since being admitted to our hospital on Monday that she became dizzy and felt like she was going to pass out. Her blood pressures were noted to be fluctuating. Per the physical therapist note, it showed that her blood pressure before therapy was 143/76, during therapy it was 173/75 and after therapy it was 123/67. Patient said she did not complete her physical therapy session due to her blood pressure changes as well as her dizziness. She also states that as soon as she sat back down in bed and got situated that her dizziness has resolved. She denies any dizziness during her examination. PAST MEDICAL HISTORY: Includes high blood pressure. She states that she does have a history of coronary artery disease as well as multiple TIAs. She does see Dr. Quinn for routine cardiac care. She said it has been over 1 year since she has seen him. She also states that she had a left heart catheterization about 2 years ago. She states that she has no stents in her heart, but she does have a stent in her right kidney possibly, but is unsure of which kidney. PAST SURGICAL HISTORY: Includes hysterectomy. SOCIAL HISTORY: She is . She does have step children. She lives at home with her . She does not drink alcohol, use tobacco products, or recreational drugs. She is a deputy city clerk . FAMILY HISTORY: Includes her mother from cancer. Her father from a bleeding ulcer. She states that her father was an alcoholic, and she states her brother has Alzheimer disease and her sister has suffered from a CVA in the past. ALLERGIES: INCLUDE CODEINE AND STELAZINE. HOME MEDICATIONS: Upon admission to the hospital include: 1. Ambien 10 mg p.o. h.s. 2. Crestor 20 mg p.o. h.s. 3. Carvedilol 6.25 mg twice daily. 4. Flexeril 10 mg p.o. p.r.n. 5. Clopidogrel 75 mg daily. 6. Vitamin D3 1000 units daily. 7. She also states that has been on Cartia 240 mg daily for quite sometime, but this medication is not listed on her home medication list. REVIEW OF SYSTEMS: CONSTITUTIONAL: Patient was positive for dizziness with standing today while working with Physical Therapy. HEENT: She does deny any headaches, vision changes, hearing loss, tinnitus, vertigo, nosebleed, or sore throat. PULMONARY: She does deny wheezing, shortness of breath, trouble breathing, cough, asthma, or environmental allergies. CARDIAC: She does deny palpitations, chest pains, pressure, shortness of breath, or dyspnea on exertion. GASTROINTESTINAL: She denies dysphagia, dyspepsia, abdominal pain, nausea, vomiting, diarrhea, constipation, jaundice, or changes in bowel functions. GENITOURINARY: She denies any dysuria, polyuria, hematuria, or incontinence. MUSCULOSKELETAL: She denies any joint swelling or myalgias. NEUROLOGICAL: She denies any seizures, paralysis, tremors, or weakness. She does complain of feeling like she is going to pass out while working with Physical Therapy today, but that has resolved. PHYSICAL EXAMINATION: VITAL SIGNS: Her current set of vital signs, blood pressure 159/77, heart rate 67, respirations 18, oxygen levels are 99% on room air. Her temperature is 97.8. Her EKG is sinus rhythm, heart rate 67. HEENT: Normocephalic and atraumatic. Her carotids are 2+. I do not hear any carotid bruits. CHEST: Clear to auscultation bilaterally throughout anterior and posteriorly. I do not hear any rales, rhonchi, or wheezing. CARDIOVASCULAR: Reveals a regular rate and rhythm with a normal S1 and S2. I do not hear an S4 or S3. I do not hear any significant murmurs, thrills, rubs, or heaves. ABDOMEN: Her abdomen is soft and nontender. Bowel sounds are present x4 quadrants. I do not feel any hepatosplenomegaly, palpable masses, or hernias. EXTREMITIES: She does have normal muscle strength and tone. No cyanosis or clubbing. Her pulses are +2 throughout. NEUROLOGICAL: Unremarkable. LABORATORY DATA: Current set of labs include white blood cells 10.6, red blood cells 3.91, hemoglobin 12.2, hematocrit 34.9, platelets are 297. Sodium level 137, potassium 3.7, chloride 107, carbon dioxide 22, BUN 12, creatinine is 0.92, glucose 108. Her most recent cholesterol levels, triglycerides 136, cholesterol 136, LDL 64, and HDL is 45. Her TSH is 2.7923. Her cortisol level is 4.10. ASSESSMENT AND PLAN: 1. Transient ischemic attack. She was given tPA in the emergency department for this and this has resolved. She has had previous transient ischemic attacks in the past for which she takes Plavix. WE could consider a AMILCAR to look for a PFO as she has had several TIA's in the past. 2. Hyperlipidemia. She is currently on Crestor. We will continue this. 3. Coronary artery disease. Patient states that she might have a history of coronary artery disease that was documented in the emergency room records. She does see Dr. Quinn as her primary records and tape recordings engineer. She states that she sees him for blood pressure control. She states it has been several years since her last stress test and she did have a left heart catheterization 2 years ago, she states that was normal. Her most recent echocardiogram on July 14 showed an ejection fraction of 55% to 60%. Mild concentric left ventricular hypertrophy, diastolic dysfunction, and mild tricuspid regurgitation. No thrombus was noted. The patient does state that she knows that she does have a leaky valve, but she was unsure which valve. 4. Hypertension. Currently, here at the hospital, she is receiving Coreg 12.5 mg twice daily as well as hydralazine 25 mg 3 times a day. She also states that at home she was taking Cartia 240 mg daily. We will restart this. We will continue to monitor. She states that she had dizziness the first time working with Physical Therapy. She has been up to the restroom a couple of times since then and states that she did not have any dizziness. We will continue to monitor this closely and continue to monitor throughout her hospital stay. Job ID: [id number] [facility]
--- NOTE | 2020-07-17 06:38 | CON ---
DATE OF CONSULTATION: 07/16/2020 ADDENDUM: Please refer to the notes dictated by my nurse practitioner, Jeannie Calzada. INDICATION FOR CONSULTATION: This is a 74-year-old female with a TIA. We were asked to evaluate her based on her history of TIAs. HISTORY OF PRESENT ILLNESS: Please refer to the notes already dictated. ASSESSMENT: This is a 74-year-old female who actually on close questioning had multiple TIAs in the past. She has been followed in the past by Dr. Quinn, but it sounds as if she has not mentioned these TIAs to him in the past, but on this admission she had one that was significantly worse than what she has experienced in the past. She said she has at least 3 or 4 a month and every other month she continues to have these short episodes what she describes as being a TIA, but nothing as significant as what she had on the date of admission. Her echocardiogram shows a normal ejection fraction. No significant abnormalities otherwise. Given her history of significant frequency of TIAs, I would suggest she undergo a transesophageal echocardiogram to rule out evidence of a patent foramen ovale or atrial septal defects that may be causing some of these issues. If so, she may be a candidate to undergo an Amplatzer occluding device to close off any structural abnormalities. Otherwise, we will continue her home medications. She is on Plavix. Thus, we will continue the medication once she has passed her 48 hours after the TIA. The MRI does show some white matter changes but no acute bleed or other cerebral infarct was noted. We are more than happy to continue to follow this patient with you and further recommendations will depend after the results of a transesophageal echocardiogram. I have discussed this with her and her also about proceeding with a transesophageal echocardiogram, the indications, the procedure, and the risks. We will plan for a transesophageal echocardiogram as soon as possible. Otherwise, she may be a candidate also to undergo some type of a monitoring device, either an event monitor for 2-4 weeks or even possibly an implantable loop recorder depending on the results. Job ID: [id number] [facility]
[2020-07-17] MEDS ORDERED: PROPOFOL 40 ML ONE (10:06)
[2020-07-17] MEDS ORDERED: Lidocaine Viscous Sol 2% 15 ml UD Cup ONE (11:27)
[2020-07-17] MEDS ORDERED: Mag-Al 1200 mg/1200 mg/30 ML UDCUP ONE (11:27)
--- NOTE | 2020-07-17 14:26 | PDOC.NEUPN ---
- Subjective Encounter Date: 07/17/20 Subjective: Mrs. Jalloh is back after AMILCAR. She denies any new complaints. Daughter at bedside. - Objective Vital Signs & Weight: Vital Signs (12 hours) Temp Pulse Resp BP BP Pulse Ox 07/17/20 12:00 97.9 F 66 16 163/82 H 99 07/17/20 08:00 98.1 F 66 16 159/82 H 97 07/17/20 03:45 98.2 F 74 14 148/70 H 96 Weight Weight 146 lb 4 oz Most Recent Monitor Data Heart Rate from ECG 75 NIBP 122/56 NIBP BP-Mean 78 Respiration from ECG 12 SpO2 100 I&O: 07/16/20 07/17/20 07/18/20 06:59 06:59 06:59 Intake Total 620 677 Balance 620 677 Result Diagrams: 07/16/20 05:01 07/16/20 05:01 Radiology Reviewed by me: Yes EKG Reviewed by me: Yes ROS - Review of Systems Constitutional: denies: fever, chills, sweats, weakness, malaise, other ENT: reports: mouth pain. denies: ear pain, ear discharge, nose pain, nose discharge, nose congestion, mouth swelling, throat pain, throat swelling, other Genitourinary: denies: dysuria, frequency, incontinence, hematuria, retention, other Musculoskeletal: denies: neck pain, shoulder pain, arm pain, back pain, hand pain, leg pain, foot pain, other Skin: denies: rash, lesions, alley, bruising, other - Medication Medications: Active Medications Generic Name Dose Route Start Last Admin Trade Name Freq PRN Reason Stop Dose Admin Hydrocodone Bitart/Acetaminophen 1 tab 07/13/20 15:48 07/16/20 08:20 Hydrocodone/Acetaminophen 5/325 Mg Tablet PO 1 tab Q4H PRN Administration Moderate Pain (4-6) Carvedilol 12.5 mg 07/16/20 21:00 07/16/20 21:45 Carvedilol 6.25 Mg Tab PO 12.5 mg BID SINDI Administration Cholecalciferol 1,000 units 07/15/20 09:00 07/16/20 08:17 Cholecalciferol 1,000 Units (25 Mcg) Tab PO 1,000 units DAILY SINDI Administration Clopidogrel Bisulfate 75 mg 07/15/20 09:00 07/16/20 08:17 Clopidogrel Bisulfate 75 Mg Tab PO 75 mg DAILY SINDI Administration Hydralazine HCl 10 mg 07/13/20 15:48 07/13/20 15:59 Hydralazine 20 Mg/Ml Vial SLOW IVP 10 mg Q4H PRN Administration SBP > 180 or DBP > 105 Hydralazine HCl 25 mg 07/16/20 15:00 07/16/20 21:45 Hydralazine 25 Mg Tab PO 25 mg TID SINDI Administration Ondansetron HCl 4 mg 07/13/20 15:48 07/13/20 20:28 Ondansetron Pf 4 Mg/2 Ml Vial IVP 4 mg Q6H PRN Administration Nausea/Vomiting Rosuvastatin Calcium 20 mg 07/14/20 21:00 07/16/20 21:45 Rosuvastatin 20 Mg Tab PO 20 mg HS SINDI Administration - Exam General Appearance: awake alert Eye: PERRL ENT: dry oral mucosa Neck: supple Respiratory: CTAB Cardiovascular: RRR Gastrointestinal: soft Extremities: no cyanosis Skin: normal turgor Neurological: no new deficit Musculoskeletal: normal tone, no muscle wasting PSYCH: normal affect, normal behavior, A&O x 3, oriented to person, oriented to place, oriented to time Results - Labs Result Diagrams: 07/16/20 05:01 07/16/20 05:01 Lab results: WBC 10.6 thou/uL (4.8-10.8) 07/16/20 05:01 Hgb 12.2 g/dL (12.0-16.0) 07/16/20 05:01 Hct 34.9 % (36.0-47.0) L 07/16/20 05:01 MCV 89.1 fL (78.0-98.0) 07/16/20 05:01 Plt Count 297 thou/uL (130-400) 07/16/20 05:01 Neutrophils % 56.5 % (42.0-75.0) 07/16/20 05:01 Sodium 137 mmol/L (136-145) 07/16/20 05:01 Potassium 3.7 mmol/L (3.5-5.1) 07/16/20 05:01 Chloride 107 mmol/L (98-107) 07/16/20 05:01 Carbon Dioxide 22 mmol/L (23-31) L 07/16/20 05:01 BUN 12 mg/dL (9.8-20.1) 07/16/20 05:01 Creatinine 0.92 mg/dL (0.6-1.1) 07/16/20 05:01 Glucose 108 mg/dL (83-110) 07/16/20 05:01 Calcium 8.4 mg/dL (7.8-10.44) 07/16/20 05:01 Total Bilirubin 0.9 mg/dL (0.2-1.2) 07/13/20 11:40 AST 29 U/L (5-34) 07/13/20 11:40 ALT 25 U/L (8-55) 07/13/20 11:40 Alkaline Phosphatase 60 U/L (40-110) 07/13/20 11:40 Creatine Kinase 303 U/L (29-168) H 07/13/20 11:40 Troponin I 0.025 ng/mL (< 0.028) 07/13/20 11:40 Serum Total Protein 6.6 g/dL (5.8-8.1) 07/13/20 11:40 Albumin 4.0 g/dL (3.4-4.8) 07/13/20 11:40 - Radiology Interpretation MRI - head Additional Comment: M RI of the brain was negative for acute intracranial pathology. PN A/P (1) TIA (transient ischemic attack) Code(s): G45.9 - TRANSIENT CEREBRAL ISCHEMIC ATTACK, UNSPECIFIED Status: Acute (2) Acute metabolic encephalopathy Code(s): G93.41 - METABOLIC ENCEPHALOPATHY Status: Acute (3) HLD (hyperlipidemia) Code(s): E78.5 - HYPERLIPIDEMIA, UNSPECIFIED Status: Chronic (4) HTN (hypertension) Code(s): I10 - ESSENTIAL (PRIMARY) HYPERTENSION Status: Chronic Qualifiers: Hypertension type: essential hypertension Qualified Code(s): I10 - Essential (primary) hypertension - Plan Daily Plan: plan discussed w/ family (Daughter at bedside), PT/OT, speech t herapy, DVT proph w/SCDs Mrs. Jalloh is a 74-year-old female who presented with strokelike symptoms this seems to be improved since admission. Most likely transient ischemic attack. She is status post TPA and has been doing well. Cardiology was consulted because of multiple TIAs and she underwent AMILCAR Results pending at this time. He denies any new complaints MRI of the brain reviewed which was negative for acute intracranial pathology. CTA of the head and neck did not reveal hemodynamically significant stenosis. 2D echocardiogram showed left ventricular ejection fraction 50 to 55%. No thrombus or PFO. Neurochecks every 4 hours. Continue aspirin high intensity statin for secondary stroke prevention. Telemetry to rule out arrhythmias. EEG to evaluate for confusion is ongoing. We will follow up on the results. PT/OT/speech Continue home medications. Strict control of blood pressure and blood glucose. Continue medical management per primary team. DVT prophylaxis Plan and results were discussed in detail with the patient, daughter at bedside and also with the nursing staff.
[2020-07-17] MEDS: Carvedilol 6.25 MG TAB PO SCH ×2 (15:21→21:34)
[2020-07-17] MEDS: hydrALAZINE 25 MG TAB PO SCH ×3 (15:21→21:34)
[2020-07-17] MEDS: Clopidogrel Bisulfate 75 MG TAB PO SCH (15:22)
[2020-07-17] MEDS: Cholecalciferol 1,000 UNITS (25 MCG) TAB PO SCH (15:22)
--- NOTE | 2020-07-17 16:02 | PDOC.HOSPP ---
- Subjective Encounter Date: 07/17/20 Encounter Time: 15:45 Subjective: Patient returned from the transesophageal echo she feels little sore in her throat. Her daughter at bedside I talked to them at length. Physical therapy recommendation inpatient rehab we discussed. Patient and daughter agreed for the plan. Tomorrow is her 75th birthday. She is comfortable and agreeing for safest approach of going to the rehab. - Objective Vital Signs & Weight: Vital Signs (12 hours) Temp Pulse Resp BP Pulse Ox 07/17/20 12:00 97.9 F 66 16 163/82 H 99 07/17/20 08:00 98.1 F 66 16 159/82 H 97 Weight Weight 146 lb 4 oz Most Recent Monitor Data Heart Rate from ECG 75 NIBP 122/56 NIBP BP-Mean 78 Respiration from ECG 12 SpO2 100 I&O: 07/16/20 07/17/20 07/18/20 06:59 06:59 06:59 Intake Total 620 677 Balance 620 677 Result Diagrams: 07/16/20 05:01 07/16/20 05:01 Hospitalist ROS - Medication Medications: Active Medications Generic Name Dose Route Start Last Admin Trade Name Freq PRN Reason Stop Dose Admin Acetaminophen 650 mg 07/13/20 15:48 07/17/20 15:22 Acetaminophen 325 Mg Tab PO 650 mg Q4H PRN Administration Headache/Fever/Mild Pain (1-3) Hydrocodone Bitart/Acetaminophen 1 tab 07/13/20 15:48 07/16/20 08:20 Hydrocodone/Acetaminophen 5/325 Mg Tablet PO 1 tab Q4H PRN Administration Moderate Pain (4-6) Carvedilol 12.5 mg 07/16/20 21:00 07/17/20 15:21 Carvedilol 6.25 Mg Tab PO 12.5 mg BID SINDI Administration Cholecalciferol 1,000 units 07/15/20 09:00 07/17/20 15:22 Cholecalciferol 1,000 Units (25 Mcg) Tab PO 1,000 units DAILY SINDI Administration Clopidogrel Bisulfate 75 mg 07/15/20 09:00 07/17/20 15:22 Clopidogrel Bisulfate 75 Mg Tab PO 75 mg DAILY SINDI Administration Hydralazine HCl 10 mg 07/13/20 15:48 07/13/20 15:59 Hydralazine 20 Mg/Ml Vial SLOW IVP 10 mg Q4H PRN Administration SBP > 180 or DBP > 105 Hydralazine HCl 25 mg 07/16/20 15:00 07/17/20 15:21 Hydralazine 25 Mg Tab PO 25 mg TID SINDI Administration Ondansetron HCl 4 mg 07/13/20 15:48 07/13/20 20:28 Ondansetron Pf 4 Mg/2 Ml Vial IVP 4 mg Q6H PRN Administration Nausea/Vomiting Rosuvastatin Calcium 20 mg 07/14/20 21:00 07/16/20 21:45 Rosuvastatin 20 Mg Tab PO 20 mg HS SINDI Administration Hospitalist Exam Vitals: Vital Signs (12 hours) Temp Pulse Resp BP Pulse Ox 07/17/20 12:00 97.9 F 66 16 163/82 H 99 07/17/20 08:00 98.1 F 66 16 159/82 H 97 Weight Weight 146 lb 4 oz Most Recent Monitor Data Heart Rate from ECG 75 NIBP 122/56 NIBP BP-Mean 78 Respiration from ECG 12 SpO2 100 General Appearance: NAD, awake alert Eye: PERRL ENT: normocephalic atraumatic Neck: supple Heart: RRR, normal peripheral pulses Respiratory: CTAB, normal chest expansion Gastrointestinal: soft, non-tender, non-distended, normal bowel sounds Neurological: cranial nerve grossly intact, no focal deficits Psychiatric: A&O x 3 Hosp A/P - Plan TIA (transient ischemic attack) Code(s): G45.9 - TRANSIENT CEREBRAL ISCHEMIC ATTACK, UNSPECIFIED Status: Acute Plan: Suspected, MRI brain negative, continue Plavix/Crestor (2) Acute metabolic encephalopathy Code(s): G93.41 - METABOLIC ENCEPHALOPATHY Status: Acute Plan: ? Iatrogenic vs HTN encephalopathy, limit sedation/narcotics/psychotropes (3) HTN (hypertension) Code(s): I10 - ESSENTIAL (PRIMARY) HYPERTENSION Status: Chronic Qualifiers: Hypertension type: essential hypertension Qualified Code(s): I10 - Essential (primary) hypertension Plan: Resume home Coreg, serial BP monitoring (4) HLD (hyperlipidemia) Code(s): E78.5 - HYPERLIPIDEMIA, UNSPECIFIED Status: Chronic Plan: Resume home Crestor - Plan plan discussed w/ family, PT/OT, speech therapy, out of bed/ambulate, DVT proph w/SCDs Stable overall Resume home Coreg Resume Crestor SYNTHETIC RESIN OPERATOR evaluation OOB/ambulate Transfer to Stroke unit Left hemianesthesia,chronic Echo showed EF of 60% normal left atrium and left ventricle. Brain MRI showed chronic small vessel ischemic changes of the white matter. -Getting CT cervical spine to rule out any disc degeneration causing nerve impingement etc. Follow-up on TSH A1c lipid panel as well as vitamin D B12 folate ------------------> all in normal range Ongoing physical therapy Covid negative Labile blood pressure -Getting orthostatic vitals -Patient is symptomatic with variable blood pressure especially with exertion. talk to the physical therapist appreciate their input in time patient's blood pressure is quite labile when she is sitting her blood pressure is 140 systolic then when she walks around pressure drop increased to 170 on then drops to 120. Asymptomatic with the dizziness. Gettingrandom cortisol. Echo with normal EF Appreciate cardiology input Pending transesophageal echo report. PT recommended inpatient rehab. Possibly to rehab on Monday
[2020-07-17] MEDS: Cepastat Lozenges 1 LOZ PO PRN (16:11)
[2020-07-17] MEDS ORDERED: Senokot S 8.6-50 MG TAB PO PRN (20:29)
[2020-07-17] MEDS: Rosuvastatin 20 MG TAB PO SCH (21:34)
[2020-07-18] MEDS: Cholecalciferol 1,000 UNITS (25 MCG) TAB PO SCH (08:48)
[2020-07-18] MEDS: Clopidogrel Bisulfate 75 MG TAB PO SCH (08:48)
[2020-07-18] MEDS: hydrALAZINE 25 MG TAB PO SCH ×3 (08:50→21:41)
[2020-07-18] MEDS: Carvedilol 6.25 MG TAB PO SCH ×3 (08:50→21:41)
[2020-07-18] MEDS ORDERED: Polyethylene Glycol 3350 17 GM Packet PO SCH (11:00)
--- NOTE | 2020-07-18 13:21 | PDOC.CPN ---
- Subjective Date: 07/18/20 Time: 13:18 Interval history: No new issues. She is ready to start rehab now. - Review of Systems General: denies: fever/chills, weight/appetite/sleep changes, night sweats, fatigue Respiratory: denies: cough, congestion, shortness of breath, exercise intolerance Cardiovascular: denies: chest pain, palpitation, edema, paroxysmal nocturnal dyspnea, orthopnea Gastrointestinal: denies: nausea, vomiting, diarrhea, constipation, abd pain, GI bleeding Musculoskeletal: denies: pain, tenderness, stiffness, swelling, arthritis/arth ralgias - Objective Allergies/Adverse Reactions: Allergies Allergy/AdvReac Type Severity Reaction Status Date / Time codeine Allergy Verified 07/13/20 16:13 trifluoperazine Allergy Verified 07/13/20 16:13 [From Stelazine] Visit Medications: Current Medications Acetaminophen (Acetaminophen 325 Mg Tab) 650 mg PO Q4H PRN PRN Reason: Headache/Fever/Mild Pain (1-3) Last Admin: 07/17/20 15:22 Dose: 650 mg Documented by: Hydrocodone Bitart/Acetaminophen (Hydrocodone/Acetaminophen 5/325 Mg Tablet) 1 tab PO Q4H PRN PRN Reason: Moderate Pain (4-6) Last Admin: 07/16/20 08:20 Dose: 1 tab Documented by: Carvedilol (Carvedilol 6.25 Mg Tab) 12.5 mg PO BID [facility] Last Admin: 07/18/20 08:58 Dose: 6.25 mg Documented by: Cholecalciferol (Cholecalciferol 1,000 Units (25 Mcg) Tab) 1,000 units PO DAILY [facility] Last Admin: 07/18/20 08:48 Dose: 1,000 units Documented by: Clopidogrel Bisulfate (Clopidogrel Bisulfate 75 Mg Tab) 75 mg PO DAILY [facility] Last Admin: 07/18/20 08:48 Dose: 75 mg Documented by: Diltiazem HCl (Diltiazem Hcl Cd 180 Mg Capsule) 180 mg PO DAILY [facility] Last Admin: 07/18/20 08:48 Dose: 180 mg Documented by: Hydralazine HCl (Hydralazine 20 Mg/Ml Vial) 10 mg SLOW IVP Q4H PRN PRN Reason: SBP > 180 or DBP > 105 Last Admin: 07/13/20 15:59 Dose: 10 mg Documented by: Hydralazine HCl (Hydralazine 25 Mg Tab) 25 mg PO TID [facility] Last Admin: 07/18/20 08:50 Dose: 25 mg Documented by: Ondansetron HCl (Ondansetron Pf 4 Mg/2 Ml Vial) 4 mg IVP Q6H PRN PRN Reason: Nausea/Vomiting Last Admin: 07/13/20 20:28 Dose: 4 mg Documented by: Polyethylene Glycol (Polyethylene Glycol 3350 17 Gm Packet) 17 gm PO NOW [facility] Stop: 07/18/20 15:00 Last Admin: 07/18/20 13:13 Dose: 17 gm Documented by: Rosuvastatin Calcium (Rosuvastatin 20 Mg Tab) 20 mg PO [facility] Last Admin: 07/17/20 21:34 Dose: 20 mg Documented by: Senna/Docusate Sodium (Senokot S 8.6-50 Mg Tab) 2 tab PO BID PRN PRN Reason: Constipation Last Admin: 07/17/20 21:34 Dose: 2 tab Documented by: Throat Lozenges (Cepastat Lozenges 1 Herbert) 2 herbert PO TID PRN PRN Reason: Sore Throat Last Admin: 07/17/20 16:11 Dose: 2 herbert Documented by: Vital Signs & Weight: Vital Signs Temp Pulse Resp BP BP BP Pulse Ox 07/18/20 08:58 168/91 H 07/18/20 08:50 72 07/18/20 08:00 98.5 F 72 15 108/56 L 96 07/18/20 03:15 98.9 F 78 18 111/61 97 Weight 146 lb 11.2 oz - Physical Exam General: alert & oriented x3 HEENT: mucus membranes moist Neck: supple neck Cardiac: regular rate and rhythm Lungs: clear to auscultation Neuro: no lateralizing findings Abdomen: active bowel sounds Extremities: no edema Skin: clear Musculoskeletal: no pain - Labs Result Diagrams: 07/16/20 05:01 07/16/20 05:01 Troponin/CKMB Troponin I 0.025 ng/mL (< 0.028) 07/13/20 11:40 - Telemetry Sinus rhythms and dysrhythmias: sinus rhythm - Assessment/Plan Assessment/Plan: 1. Acute CVA 2. S/P TPA 3. Hx of renal artery stent PLAN: - No evidence of intracardiac shunt or thrombus on AMILCAR - Would be a candidate for a LINQ for cryptogenic CVA. She wants to discuss with her primary Life Care Planner Dr. Quinn. - Will sign off. Please call with any questions. Follow up with Dr. Quinn to discuss ILR placement.
--- NOTE | 2020-07-18 15:19 | PDOC.BPN ---
- Brief Progress Note [id number] Progress
--- NOTE | 2020-07-18 15:54 | PRG ---
DATE OF SERVICE: 07/18/2020 SUBJECTIVE: The patient is sitting up in bed. She is feeling weak, but overall she is better. The patient had a AMILCAR, which did not show any intracardiac thrombus or shunt. REVIEW OF SYSTEMS: Review of 14 systems negative except what is mentioned above. PHYSICAL EXAMINATION: GENERAL: The patient is awake, alert, does not appear to be in acute distress. VITAL SIGNS: Blood pressure 138/66, pulse is 72, respiratory rate is 16, oxygen saturation 96%. The patient is afebrile. HEAD AND NECK: Normocephalic, atraumatic. NECK: Supple. No JVD. CHEST: Fair bilateral air entry. HEART: S1, S2. Regular. ABDOMEN: Soft, nontender. Bowel sounds present. NEUROLOGIC: Awake, alert, oriented. PSYCH: Normal mood. ASSESSMENT AND PLAN: 1. Transient ischemic attack, recurrent, MRI is negative, AMILCAR is negative. 2. Generalized weakness. Continue physical therapy. 3. Hypertension. Serial blood pressure monitoring, Coreg. 4. Hyperlipidemia, aggressive statin. 5. CT of the cervical spine, degenerative changes. No fracture or subluxation involving the cervical spine. Varying degrees of neuroforaminal narrowing are present. Spine related to bony encroachment. Plan physical therapy/inpatient rehab. Continue PT/OT. Job ID: [id number]
[2020-07-18] MEDS: Rosuvastatin 20 MG TAB PO SCH (21:41)
[2020-07-18] MEDS: Zolpidem Tartrate 5 MG TAB PO PRN (21:46)
[2020-07-19] MEDS: Carvedilol 6.25 MG TAB PO SCH ×2 (08:52→20:13)
[2020-07-19] MEDS: Cholecalciferol 1,000 UNITS (25 MCG) TAB PO SCH (08:52)
[2020-07-19] MEDS: hydrALAZINE 25 MG TAB PO SCH ×3 (08:52→20:13)
[2020-07-19] MEDS: Clopidogrel Bisulfate 75 MG TAB PO SCH (08:52)
--- NOTE | 2020-07-19 13:28 | PDOC.BPN ---
- Brief Progress Note [id number]
--- NOTE | 2020-07-19 13:36 | PDOC.NEUPN ---
- Subjective Encounter Date: 07/19/20 Subjective: Mrs. Jalloh is doing much better today. AMILCAR completed which was negative for thrombus. - Objective Vital Signs & Weight: Vital Signs (12 hours) Temp Pulse Resp BP BP BP BP 07/19/20 13:00 137/67 115/59 L 07/19/20 11:26 97.6 F 58 L 16 134/61 07/19/20 08:52 61 142/78 H 07/19/20 07:44 97.5 F L 61 20 148/59 H 07/19/20 03:41 97.9 F 59 L 18 112/57 L BP Pulse Ox 07/19/20 13:00 131/62 07/19/20 11:26 98 07/19/20 08:52 07/19/20 07:44 96 07/19/20 03:41 96 Weight Weight 152 lb Most Recent Monitor Data Heart Rate from ECG 75 NIBP 122/56 NIBP BP-Mean 78 Respiration from ECG 12 SpO2 100 I&O: 07/18/20 07/19/20 07/20/20 06:59 06:59 06:59 Intake Total 120 711 474 Balance 120 711 474 Result Diagrams: 07/16/20 05:01 07/16/20 05:01 Radiology Reviewed by me: Yes EKG Reviewed by me: Yes ROS - Review of Systems Constitutional: denies: fever, chills, sweats, weakness, malaise, other Eyes: denies: pain, vision change, conjunctivae inflammation, eyelid inflammation, redness, other Gastrointestinal: reports: nausea. denies: vomiting, abdominal pain, diarrhea, constipation, melena, hematochezia, other Genitourinary: denies: dysuria, frequency, incontinence, hematuria, retention, other Musculoskeletal: denies: neck pain, shoulder pain, arm pain, back pain, hand pain, leg pain, foot pain, other - Medication Medications: Active Medications Generic Name Dose Route Start Last Admin Trade Name Freq PRN Reason Stop Dose Admin Acetaminophen 650 mg 07/13/20 15:48 07/17/20 15:22 Acetaminophen 325 Mg Tab PO 650 mg Q4H PRN Administration Headache/Fever/Mild Pain (1-3) Hydrocodone Bitart/Acetaminophen 1 tab 07/13/20 15:48 07/16/20 08:20 Hydrocodone/Acetaminophen 5/325 Mg Tablet PO 1 tab Q4H PRN Administration Moderate Pain (4-6) Carvedilol 6.25 mg 07/18/20 21:00 07/19/20 08:52 Carvedilol 6.25 Mg Tab PO 6.25 mg BID [facility] Administration Cholecalciferol 1,000 units 07/15/20 09:00 07/19/20 08:52 Cholecalciferol 1,000 Units (25 Mcg) Tab PO 1,000 units DAILY SINDI Administration Clopidogrel Bisulfate 75 mg 07/15/20 09:00 07/19/20 08:52 Clopidogrel Bisulfate 75 Mg Tab PO 75 mg DAILY SIDNI Administration Diltiazem HCl 180 mg 07/17/20 09:00 07/19/20 08:52 Diltiazem Hcl Cd 180 Mg Capsule PO 180 mg DAILY [facility] Administration Hydralazine HCl 10 mg 07/13/20 15:48 07/13/20 15:59 Hydralazine 20 Mg/Ml Vial SLOW IVP 10 mg Q4H PRN Administration SBP > 180 or DBP > 105 Hydralazine HCl 25 mg 07/16/20 15:00 07/19/20 08:52 Hydralazine 25 Mg Tab PO 25 mg TID [facility] Administration Ondansetron HCl 4 mg 07/13/20 15:48 07/13/20 20:28 Ondansetron Pf 4 Mg/2 Ml Vial IVP 4 mg Q6H PRN Administration Nausea/Vomiting Rosuvastatin Calcium 20 mg 07/14/20 21:00 07/18/20 21:41 Rosuvastatin 20 Mg Tab PO 20 mg HS [facility] Administration Senna/Docusate Sodium 2 tab 07/17/20 20:29 07/17/20 21:34 Senokot S 8.6-50 Mg Tab PO 2 tab BID PRN Administration Constipation Throat Lozenges 2 herbert 07/17/20 14:50 07/17/20 16:11 Cepastat Lozenges 1 Herbert PO 2 herbert TID PRN Administration Sore Throat Zolpidem Tartrate 5 mg 07/18/20 16:38 07/18/20 21:46 Zolpidem Tartrate 5 Mg Tab PO 5 mg HSPRN PRN Administration Insomnia - Exam General Appearance: awake alert Eye: PERRL ENT: normocephalic atraumatic Neck: supple Respiratory: CTAB Cardiovascular: RRR Gastrointestinal: soft Extremities: no cyanosis Skin: normal turgor Neurological: no new deficit Musculoskeletal: normal tone, normal strength, no muscle wasting PSYCH: normal affect, normal behavior, A&O x 3, oriented to person, oriented to place, oriented to time Results - Labs Result Diagrams: 07/16/20 05:01 07/16/20 05:01 Lab results: WBC 10.6 thou/uL (4.8-10.8) 07/16/20 05:01 Hgb 12.2 g/dL (12.0-16.0) 07/16/20 05:01 Hct 34.9 % (36.0-47.0) L 07/16/20 05:01 MCV 89.1 fL (78.0-98.0) 07/16/20 05:01 Plt Count 297 thou/uL (130-400) 07/16/20 05:01 Neutrophils % 56.5 % (42.0-75.0) 07/16/20 05:01 Sodium 137 mmol/L (136-145) 07/16/20 05:01 Potassium 3.7 mmol/L (3.5-5.1) 07/16/20 05:01 Chloride 107 mmol/L (98-107) 07/16/20 05:01 Carbon Dioxide 22 mmol/L (23-31) L 07/16/20 05:01 BUN 12 mg/dL (9.8-20.1) 07/16/20 05:01 Creatinine 0.92 mg/dL (0.6-1.1) 07/16/20 05:01 Glucose 108 mg/dL (83-110) 07/16/20 05:01 Calcium 8.4 mg/dL (7.8-10.44) 07/16/20 05:01 Total Bilirubin 0.9 mg/dL (0.2-1.2) 07/13/20 11:40 AST 29 U/L (5-34) 07/13/20 11:40 ALT 25 U/L (8-55) 07/13/20 11:40 Alkaline Phosphatase 60 U/L (40-110) 07/13/20 11:40 Creatine Kinase 303 U/L (29-168) H 07/13/20 11:40 Troponin I 0.025 ng/mL (< 0.028) 07/13/20 11:40 Serum Total Protein 6.6 g/dL (5.8-8.1) 07/13/20 11:40 Albumin 4.0 g/dL (3.4-4.8) 07/13/20 11:40 - EKG Interpretation EKG: Normal sinus rhythm - Radiology Interpretation MRI - head Additional Comment: Negative for any acute intracranial pathology PN A/P (1) TIA (transient ischemic attack) Code(s): G45.9 - TRANSIENT CEREBRAL ISCHEMIC ATTACK, UNSPECIFIED Status: Acute (2) Acute metabolic encephalopathy Code(s): G93.41 - METABOLIC ENCEPHALOPATHY Status: Acute (3) HLD (hyperlipidemia) Code(s): E78.5 - HYPERLIPIDEMIA, UNSPECIFIED Status: Chronic (4) HTN (hypertension) Code(s): I10 - ESSENTIAL (PRIMARY) HYPERTENSION Status: Chronic Qualifiers: Hypertension type: essential hypertension Qualified Code(s): I10 - Essential (primary) hypertension - Plan Daily Plan: plan discussed w/ family ( at bedside), PT/OT, speech therapy, DVT proph w/SCDs Mrs. Jalloh is a 74-year-old female who presented with strokelike symptoms this seems to be improved since admission. Most likely transient ischemic attack. She is status post TPA and has been doing well. No acute complaints in the last 24 hours Cardiology was consulted because of multiple TIAs and she underwent AMILCAR which was negative Patient is awaiting rehab placement and will follow up with cardiology as outpatient for Linq monitor to rule out arrhythmias. MRI of the brain reviewed which was negative for acute intracranial pathology. CTA of the head and neck did not reveal hemodynamically significant stenosis. 2D echocardiogram showed left ventricular ejection fraction 50 to 55%. No thrombus or PFO. Neurochecks every 4 hours. Continue Plavix and high intensity statin for secondary stroke prevention. Telemetry to rule out arrhythmias. EEG to evaluate for confusion is ongoing. We will follow up on the results. PT/OT/speech Continue home medications. Strict control of blood pressure and blood glucose. Continue medical management per primary team. DVT prophylaxis Plan and results were discussed in detail with the patient, at bedside and also with the nursing staff.
--- NOTE | 2020-07-19 14:00 | PRG ---
DATE OF SERVICE: 07/19/2020 SUBJECTIVE: The patient is sitting up in bed. She said that overall she is feeling a little better, but she is still weak, not back to her baseline. In summary, the patient has been having recurrent TIAs. Workup including AMILCAR did not show any intracardiac shunt or thrombus. The patient is awaiting rehab placement. OBJECTIVE: GENERAL: The patient is awake, alert, does not appear to be in acute distress. VITAL SIGNS: Temperature is 97.9, pulse is 60, respiratory rate is 18, oxygen saturation is 96%, blood pressure is 112/57. HEAD AND NECK: Normocephalic, atraumatic. Neck is supple. No JVD. CHEST: Fair bilateral air entry. HEART: S1 and S2, regular. ABDOMEN: Soft, nontender. Bowel sounds present. NEUROLOGIC: Awake, alert, oriented, moving extremities. MUSCULOSKELETAL: Generalized weakness. PSYCH: Normal mood. ASSESSMENT AND PLAN: 1. Transient ischemic attack, recurrent, MRI is negative, AMILCAR is negative, the patient has been seen by Cardiology and Neurology. 2. Generalized weakness. Continue PT/OT, awaiting rehab placement. 3. Hypertension. Serial blood pressure monitoring, Coreg. 4. Hyperlipidemia, continue statin. Job ID: [id number]
[2020-07-19] MEDS: Rosuvastatin 20 MG TAB PO SCH (20:13)
[2020-07-19] MEDS: Zolpidem Tartrate 5 MG TAB PO PRN (22:12)
--- NOTE | 2020-07-20 07:43 | PDOC.HOSPP ---
- Subjective Encounter Date: 07/20/20 Encounter Time: 10:50 Subjective: Patient reports that her left-sided weakness seems to be improving. No complaints today. Awaiting rehab placement. - Objective Vital Signs & Weight: Vital Signs (12 hours) Temp Pulse Resp BP BP Pulse Ox 07/20/20 07:33 97.7 F 60 16 129/68 97 07/20/20 03:15 97.9 F 18 107/62 97 07/19/20 23:25 98.2 F 66 18 118/58 L 98 07/19/20 20:13 63 150/68 H 07/19/20 20:10 97.8 F 63 14 150/68 H 98 Weight Weight 151 lb Most Recent Monitor Data Heart Rate from ECG 75 NIBP 122/56 NIBP BP-Mean 78 Respiration from ECG 12 SpO2 100 I&O: 07/19/20 07/20/20 07/21/20 06:59 06:59 06:59 Intake Total 711 834 Balance 711 834 Result Diagrams: 07/16/20 05:01 07/16/20 05:01 Hospitalist ROS - Review of Systems Constitutional: denies: fever, chills Respiratory: denies: cough, shortness of breath Cardiovascular: denies: chest pain, palpitations Gastrointestinal: denies: nausea, vomiting, abdominal pain - Medication Medications: Active Medications Generic Name Dose Route Start Last Admin Trade Name Freq PRN Reason Stop Dose Admin Acetaminophen 650 mg 07/13/20 15:48 07/17/20 15:22 Acetaminophen 325 Mg Tab PO 650 mg Q4H PRN Administration Headache/Fever/Mild Pain (1-3) Hydrocodone Bitart/Acetaminophen 1 tab 07/13/20 15:48 07/16/20 08:20 Hydrocodone/Acetaminophen 5/325 Mg Tablet PO 1 tab Q4H PRN Administration Moderate Pain (4-6) Carvedilol 6.25 mg 07/18/20 21:00 07/19/20 20:13 Carvedilol 6.25 Mg Tab PO 6.25 mg BID SINDI Administration Cholecalciferol 1,000 units 07/15/20 09:00 07/19/20 08:52 Cholecalciferol 1,000 Units (25 Mcg) Tab PO 1,000 units DAILY SINDI Administration Clopidogrel Bisulfate 75 mg 07/15/20 09:00 07/19/20 08:52 Clopidogrel Bisulfate 75 Mg Tab PO 75 mg DAILY SINDI Administration Diltiazem HCl 180 mg 07/17/20 09:00 07/19/20 08:52 Diltiazem Hcl Cd 180 Mg Capsule PO 180 mg DAILY SINDI Administration Hydralazine HCl 10 mg 07/13/20 15:48 07/13/20 15:59 Hydralazine 20 Mg/Ml Vial SLOW IVP 10 mg Q4H PRN Administration SBP > 180 or DBP > 105 Hydralazine HCl 25 mg 07/16/20 15:00 07/19/20 20:13 Hydralazine 25 Mg Tab PO 25 mg TID SINDI Administration Ondansetron HCl 4 mg 07/13/20 15:48 07/13/20 20:28 Ondansetron Pf 4 Mg/2 Ml Vial IVP 4 mg Q6H PRN Administration Nausea/Vomiting Rosuvastatin Calcium 20 mg 07/14/20 21:00 07/19/20 20:13 Rosuvastatin 20 Mg Tab PO 20 mg HS SINDI Administration Senna/Docusate Sodium 2 tab 07/17/20 20:29 07/17/20 21:34 Senokot S 8.6-50 Mg Tab PO 2 tab BID PRN Administration Constipation Throat Lozenges 2 herbert 07/17/20 14:50 07/17/20 16:11 Cepastat Lozenges 1 Herbert PO 2 herbert TID PRN Administration Sore Throat Zolpidem Tartrate 5 mg 07/18/20 16:38 07/19/20 22:12 Zolpidem Tartrate 5 Mg Tab PO 5 mg HSPRN PRN Administration Insomnia Hospitalist Exam Vitals: Vital Signs (12 hours) Temp Pulse Resp BP BP Pulse Ox 07/20/20 07:33 97.7 F 60 16 129/68 97 07/20/20 03:15 97.9 F 18 107/62 97 07/19/20 23:25 98.2 F 66 18 118/58 L 98 07/19/20 20:13 63 150/68 H 07/19/20 20:10 97.8 F 63 14 150/68 H 98 Weight Weight 151 lb Most Recent Monitor Data Heart Rate from ECG 75 NIBP 122/56 NIBP BP-Mean 78 Respiration from ECG 12 SpO2 100 General Appearance: NAD, awake alert ENT: moist mucosa Heart: RRR, no murmur, no gallops, no rubs Respiratory: CTAB, no wheezes, no rales, no ronchi Gastrointestinal: soft, non-tender, non-distended, normal bowel sounds Extremities: no edema Psychiatric: normal affect, normal behavior, A&O x 3 Hosp A/P - Plan TIA (transient ischemic attack) Code(s): G45.9 - TRANSIENT CEREBRAL ISCHEMIC ATTACK, UNSPECIFIED Status: Acute Plan: Suspected, MRI brain negative, continue Plavix/Crestor (2) Acute metabolic encephalopathy Code(s): G93.41 - METABOLIC ENCEPHALOPATHY Status: Resolved Plan: ? 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 AMILCAR negative for abnormality Brain MRI showed chronic small vessel ischemic changes of the white matter. CT c-spine with multilevel disease but no severe disc herniation Follow-up on TSH A1c lipid panel as well as vitamin D B12 folate--> all in normal range Ongoing physical therapy Covid negative Disposition: rehab eval and d/c once approved and has bed
[2020-07-20] MEDS: Cholecalciferol 1,000 UNITS (25 MCG) TAB PO SCH (08:19)
[2020-07-20] MEDS: Clopidogrel Bisulfate 75 MG TAB PO SCH (08:19)
[2020-07-20] MEDS: hydrALAZINE 25 MG TAB PO SCH ×3 (08:19→20:32)
[2020-07-20] MEDS: Carvedilol 6.25 MG TAB PO SCH ×2 (08:19→20:33)
[2020-07-20] MEDS: Cepastat Lozenges 1 LOZ PO PRN (08:20)
[2020-07-20] MEDS: HYDROcodone/Acetaminophen 5/325 mg Tablet PO PRN (08:20)
[2020-07-20] MEDS: Rosuvastatin 20 MG TAB PO SCH (20:33)
[2020-07-20] MEDS: Zolpidem Tartrate 5 MG TAB PO PRN (22:21)
--- NOTE | 2020-07-21 07:29 | PDOC.HOSPP ---
- Subjective Encounter Date: 07/21/20 Encounter Time: 10:00 Subjective: Patient reports that she is doing much better with physical therapy. Her left lower extremity weakness is improving. She states that she has a walker at home and that she feels adequate for getting up and down to the bathroom and around her house with the help of her . She does not want to wait for rehab and actually communicated that she did not want rehab to the phone representative yesterday so it was never put in for insurance authorization. She would like to do outpatient physical therapy at [facility]. - Objective Vital Signs & Weight: Vital Signs (12 hours) Temp Pulse Resp BP Pulse Ox 07/21/20 04:25 98.1 F 63 18 135/71 95 07/20/20 23:50 97.9 F 59 L 18 128/59 L 97 07/20/20 20:32 58 L 07/20/20 20:11 98.4 F 58 L 16 151/67 H 99 Weight Weight 150 lb 8 oz Most Recent Monitor Data Heart Rate from ECG 75 NIBP 122/56 NIBP BP-Mean 78 Respiration from ECG 12 SpO2 100 I&O: 07/20/20 07/21/20 07/22/20 06:59 06:59 06:59 Intake Total 834 711 Balance 834 711 Result Diagrams: 07/16/20 05:01 07/16/20 05:01 Hospitalist ROS - Review of Systems Constitutional: denies: fever, chills Respiratory: denies: cough, shortness of breath Cardiovascular: denies: chest pain, palpitations Gastrointestinal: denies: nausea, vomiting, abdominal pain Genitourinary: denies: dysuria, hematuria - Medication Medications: Active Medications Generic Name Dose Route Start Last Admin Trade Name Freq PRN Reason Stop Dose Admin Acetaminophen 650 mg 07/13/20 15:48 07/17/20 15:22 Acetaminophen 325 Mg Tab PO 650 mg Q4H PRN Administration Headache/Fever/Mild Pain (1-3) Hydrocodone Bitart/Acetaminophen 1 tab 07/13/20 15:48 07/20/20 08:20 Hydrocodone/Acetaminophen 5/325 Mg Tablet PO 1 tab Q4H PRN Administration Moderate Pain (4-6) Carvedilol 6.25 mg 07/18/20 21:00 07/20/20 20:33 Carvedilol 6.25 Mg Tab PO 6.25 mg BID SINDI Administration Cholecalciferol 1,000 units 07/15/20 09:00 07/20/20 08:19 Cholecalciferol 1,000 Units (25 Mcg) Tab PO 1,000 units DAILY SINDI Administration Clopidogrel Bisulfate 75 mg 07/15/20 09:00 07/20/20 08:19 Clopidogrel Bisulfate 75 Mg Tab PO 75 mg DAILY SINDI Administration Diltiazem HCl 180 mg 07/17/20 09:00 07/20/20 08:19 Diltiazem Hcl Cd 180 Mg Capsule PO 180 mg DAILY SINDI Administration Hydralazine HCl 10 mg 07/13/20 15:48 07/13/20 15:59 Hydralazine 20 Mg/Ml Vial SLOW IVP 10 mg Q4H PRN Administration SBP > 180 or DBP > 105 Hydralazine HCl 25 mg 07/16/20 15:00 07/20/20 20:32 Hydralazine 25 Mg Tab PO 25 mg TID SINDI Administration Ondansetron HCl 4 mg 07/13/20 15:48 07/13/20 20:28 Ondansetron Pf 4 Mg/2 Ml Vial IVP 4 mg Q6H PRN Administration Nausea/Vomiting Rosuvastatin Calcium 20 mg 07/14/20 21:00 07/20/20 20:33 Rosuvastatin 20 Mg Tab PO 20 mg HS SINDI Administration Senna/Docusate Sodium 2 tab 07/17/20 20:29 07/17/20 21:34 Senokot S 8.6-50 Mg Tab PO 2 tab BID PRN Administration Constipation Throat Lozenges 2 herbert 07/17/20 14:50 07/20/20 08:20 Cepastat Lozenges 1 Herbert PO 1 herbert TID PRN Administration Sore Throat Zolpidem Tartrate 5 mg 07/18/20 16:38 07/20/20 22:21 Zolpidem Tartrate 5 Mg Tab PO 5 mg HSPRN PRN Administration Insomnia Hospitalist Exam Vitals: Vital Signs (12 hours) Temp Pulse Resp BP Pulse Ox 07/21/20 04:25 98.1 F 63 18 135/71 95 07/20/20 23:50 97.9 F 59 L 18 128/59 L 97 07/20/20 20:32 58 L 07/20/20 20:11 98.4 F 58 L 16 151/67 H 99 Weight Weight 150 lb 8 oz Most Recent Monitor Data Heart Rate from ECG 75 NIBP 122/56 NIBP BP-Mean 78 Respiration from ECG 12 SpO2 100 General Appearance: NAD, awake alert ENT: moist mucosa Heart: RRR, no murmur, no gallops, no rubs Respiratory: CTAB, no wheezes, no rales, no ronchi Gastrointestinal: soft, non-tender, non-distended, normal bowel sounds Extremities: no edema Musculoskeletal: normal tone, normal strength, no muscle wasting Psychiatric: normal affect, normal behavior, A&O x 3 Hosp A/P - Plan TIA (transient ischemic attack) Code(s): G45.9 - TRANSIENT CEREBRAL ISCHEMIC ATTACK, UNSPECIFIED Status: Acute Plan: Suspected, MRI brain negative, continue Plavix/Crestor (2) Acute metabolic encephalopathy Code(s): G93.41 - METABOLIC ENCEPHALOPATHY Status: Resolved Plan: Iatrogenic vs HTN encephalopathy, limit sedation/narcotics/psychotropes (3) HTN (hypertension) Code(s): I10 - ESSENTIAL (PRIMARY) HYPERTENSION Status: Chronic Qualifiers: Hypertension type: essential hypertension Qualified Code(s): I10 - Essential (primary) hypertension Plan: Resume home Coreg, serial BP monitoring (4) HLD (hyperlipidemia) Code(s): E78.5 - HYPERLIPIDEMIA, UNSPECIFIED Status: Chronic Plan: Resume home Crestor Stable overall Resumed home Coreg 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 AMILCAR negative for abnormality Brain MRI showed chronic small vessel ischemic changes of the white matter. CT c-spine with multilevel disease but no severe disc herniation Follow-up on TSH A1c lipid panel as well as vitamin D B12 folate--> all in normal range Ongoing physical therapy Covid negative Disposition: Patient to go home with outpatient PT at [facility] in [place] today.
--- NOTE | 2020-07-21 08:34 | CT ---
EXAM: CT ANGIOGRAM OF THE HEAD AND NECK INDICATION: Sudden onset right facial droop and slurred speech. COMPARISON: None TECHNIQUE: CT angiogram of the head and neck are performed in the axial plane. Three-dimensional refo rmatted images are submitted for interpretation. FINDINGS: CTA OF THE HEAD WITH AND WITHOUT CONTRAST: POSTCONTRAST CT OF BRAIN: Pathologic enhancement: No pathologic enhancement the brain. Postcontrast soft tissue neck CT: Aerodigestive tract:Aerodigestive tract is patent. No mucosal abnormality. Limited evaluation of the oral cavity due to dental amalgam artifact. Epiglottis has a normal caliber. Preepiglottic fat is preserved. Sinuses: Adequate aeration of the paranasal sinuses and mastoid air cells.. Orbits: Bilateral ocular lenses implants are appropriately located. Both globes are intact. Retrobulb ar fat is preserved. Symmetric attenuation the optic nerves and ocular rectus muscles. Salivary glands:Appropriate attenuation of the parotid and submandibular glands. Absent left submandi bular gland Thyroid gland: Appropriate attenuation of the thyroid gland. Lymph nodes: No evidence of lymphadenopathy by size criteria. Paraspinal muscles: Symmetric attenuation of the sternocleidomastoid muscles. Appropriate attenuation of the paraspinal muscles. Cervical spine:Vertebral body height is maintained. No fracture. Moderate central canal stenosis and foraminal narrowing at C3-C4, C4-C5 due to degenerative change. Mild central canal stenosis and foraminal narrowing at C5-C6 and C6-C7. Limited evaluation by technique. Upper mediastinum and lung apices: No acute abnormality CTA OF THE NECK WITH CONTRAST: Aorta: Atherosclerosis of the aorta. There is a common origin of the left and right carotid arteries Right carotid artery: Appropriate enhancement and luminal diameter of the innominate artery, common c arotid artery, carotid bifurcation and internal carotid artery. No significant stenosis based upon NASCET criteria. Left carotid: Appropriate enhancement and luminal diameter the common carotid artery, carotid bifurca tion and internal carotid artery. There is mild narrowing of the left carotid bifurcation and proximal internal carotid artery due to calcified and noncalcified plaque. No significant stenosis ba sed upon NASCET criteria Subclavian arteries:Symmetric and patent Vertebral arteries:Right vertebral artery is dominant. There is a diminutive as well as occluded left vertebral artery. There appears to be recanalization of vertebral artery near the skull base. CTA OF THE BRAIN: Intracranial internal carotid arteries:Appropriate enhancement and luminal diameter. Atherosclerosis in bilateral paraclinoid and cavernous segments Anterior circulation: Appropriate enhancement and luminal diameter the A1 segments, M1 segments, A2 s egments and proximal MCA branches Intracranial vertebral arteries: Both vertebral arteries supply the basilar artery. Bilateral PICA ar all are unremarkable Posterior circulation: Both vertebral arteries supply normal caliber basilar artery. Appropriate atte nuation and enhancement and bilateral P1 segments IMPRESSION: 1. No hemodynamically significant stenosis, occlusion or aneurysmal formation. Result of the study discussed with Dr. Douglass 07/13/2020 at 11:45 AM Code CR Transcribed Date/Time: 07/21/2020 8:33 AM
[2020-07-21] MEDS: Carvedilol 6.25 MG TAB PO SCH (08:59)
[2020-07-21] MEDS: Clopidogrel Bisulfate 75 MG TAB PO SCH (08:59)
[2020-07-21] MEDS: hydrALAZINE 25 MG TAB PO SCH (08:59)
[2020-07-21] MEDS: Cholecalciferol 1,000 UNITS (25 MCG) TAB PO SCH (08:59)
[2020-07-21 11:35] VITALS: BP 145/71; TEMP 97.3
--- NOTE | 2020-07-21 12:41 | PDOC.DS.DS ---
Provider Date of Admission: 07/13/20 13:51 Date of Discharge: 07/21/20 Admitting Provider: Telma Aguilera MD Consultations: Cardiology (Dr. Haas), Neurology (Dr. Cook) Primary Care Physician: NILES ISBELL [employer] Course Hospital Course: This is a 74-year-old white female with a history of hypertension, coronary artery disease, renal artery stenosis with previous stent, history of multiple TIAs who presented to the emergency room with facial droop and difficulty speaking. She had a negative CT scan in the emergency room and negative CTA of the head and neck and received TPA in the emergency room. She did have a severe headache after the TPA and had a repeat CT scan which showed no acute changes. Her right-sided facial droop and expressive aphasia improved with TPA. She did have some residual left-sided lower extremity weakness. She also complained of the left side going numb which is not a new symptom and has happened before. She did have imaging her neck to make sure that there was not a problem there causing this. Patient did have consultation with neurology and cardiology. She had a negative echo and a negative AMILCAR. Dr. Nguyen did recommend that she follow-up with her primary business area director Dr. Quinn for discussion of a LINQ. Patient was doing well with physical therapy. We did attempt to set her up with rehabilitation however the patient was frustrated with the length of time that would take and so she refused it. She has being discharged home with her to help care for her is going to go for outpatient physical therapy at [facility]. Pertinent Studies: Exam: Head CT without contrast HISTORY: Sudden onset right facial droop and slurred speech at 10:00 AM. COMPARISON: 06/08/2009 FINDINGS: Hemorrhage: No intraparenchymal hemorrhage or extra-axial hematoma. Brain parenchyma: Cortical adame-white matter differentiation is preserved. No mass effect or midline shift. Basilar cisterns are patent.Extensive white matter hypodensities due to chronic small vessel ischemic change. Ventricular system: Ventricles and sulci are patent and symmetric. Calvarium: Intact. Sinuses and mastoid air cells: Adequate aeration. IMPRESSION: 1. No acute intracranial process EXAM: CT ANGIOGRAM OF THE HEAD AND NECK INDICATION: Sudden onset right facial droop and slurred speech. COMPARISON: None TECHNIQUE: CT angiogram of the head and neck are performed in the axial plane. Three-dimensional reformatted images are submitted for interpretation. FINDINGS: CTA OF THE HEAD WITH AND WITHOUT CONTRAST: POSTCONTRAST CT OF BRAIN: Pathologic enhancement: No pathologic enhancement the brain. Postcontrast soft tissue neck CT: Aerodigestive tract:Aerodigestive tract is patent. No mucosal abnormality. Limited evaluation of the oral cavity due to dental amalgam artifact. Epiglottis has a normal caliber. Preepiglottic fat is preserved. Sinuses: Adequate aeration of the paranasal sinuses and mastoid air cells.. Orbits: Bilateral ocular lenses implants are appropriately located. Both globes are intact. Retrobulbar fat is preserved. Symmetric attenuation the optic nerves and ocular rectus muscles. Salivary glands:Appropriate attenuation of the parotid and submandibular glands. Absent left submandibular gland Thyroid gland: Appropriate attenuation of the thyroid gland. Lymph nodes: No evidence of lymphadenopathy by size criteria. Paraspinal muscles: Symmetric attenuation of the sternocleidomastoid muscles. Appropriate attenuation of the paraspinal muscles. Cervical spine:Vertebral body height is maintained. No fracture. Moderate central canal stenosis and foraminal narrowing at C3-C4, C4-C5 due to degenerative change. Mild central canal stenosis and foraminal narrowing at C5-C6 and C6-C7. Limited evaluation by technique. Upper mediastinum and lung apices: No acute abnormality CTA OF THE NECK WITH CONTRAST: Aorta: Atherosclerosis of the aorta. There is a common origin of the left and right carotid arteries Right carotid artery: Appropriate enhancement and luminal diameter of the innominate artery, common carotid artery, carotid bifurcation and internal carotid artery. No significant stenosis based upon NASCET criteria. Left carotid: Appropriate enhancement and luminal diameter the common carotid artery, carotid bifurcation and internal carotid artery. There is mild narrowing of the left carotid bifurcation and proximal internal carotid artery due to calcified and noncalcified plaque. No significant stenosis based upon NASCET criteria Subclavian arteries:Symmetric and patent Vertebral arteries:Right vertebral artery is dominant. There is a diminutive as well as occluded left vertebral artery. There appears to be recanalization of vertebral artery near the skull base. CTA OF THE BRAIN: Intracranial internal carotid arteries:Appropriate enhancement and luminal diameter. Atherosclerosis in bilateral paraclinoid and cavernous segments Anterior circulation: Appropriate enhancement and luminal diameter the A1 segments, M1 segments, A2 segments and proximal MCA branches Intracranial vertebral arteries: Both vertebral arteries supply the basilar artery. Bilateral PICA artery are unremarkable Posterior circulation: Both vertebral arteries supply normal caliber basilar artery. Appropriate attenuation and enhancement and bilateral P1 segments IMPRESSION: 1. No hemodynamically significant stenosis, occlusion or aneurysmal formation. Head CT without contrast HISTORY: Status post TPA COMPARISON: 07/13/2020 FINDINGS: Hemorrhage: No intraparenchymal hemorrhage or extra-axial hematoma. Brain parenchyma: Cortical adame-white matter differentiation is preserved. No mass effect or midline shift. Basilar cisterns are patent.Stable chronic small vessel ischemic changes of the white matter Ventricular system: Ventricles and sulci are patent and symmetric. Calvarium: Intact. Sinuses and mastoid air cells: Adequate aeration. IMPRESSION: 1. No evidence of intracranial hemorrhage 2. Stable white matter hypodensities due to chronic small vessel ischemic changes 3. Cortical adame-white white matter differentiation is preserved. Exam: Brain MRI without contrast HISTORY: Status post TPA 24 hours. CVA. COMPARISON: None FINDINGS: Calvarial marrow signal intensity: Appropriate T1 signal Gradient echo sequence: No hemorrhage Brain parenchyma: No mass, mass effect or midline shift. Brain volume, age- appropriate. Cortical adame-white matter differentiation: Preserved Restricted diffusion: Central arterial flow voids are maintained. Absent restricted diffusion White matter signal intensities:Extensive T2, FLAIR white matter hyperintensities due to chronic small vessel ischemic changes Sinuses: Adequate aeration of the paranasal sinuses and mastoid air cells. IMPRESSION: 1. Extensive chronic small vessel ischemic changes of the white matter 2. Absent restricted diffusion. No acute infarct. EXAM: CT ANGIOGRAM OF THE NECK INDICATION: Left-sided hemiparesthesia, neck pain, headache and dizziness. COMPARISON: 07/13/2020 TECHNIQUE: CT angiogram of the neck are performed in the axial plane. Three- dimensional reformatted images are submitted for interpretation. FINDINGS: POSTCONTRAST SOFT TISSUE NECK CT: Aerodigestive tract:Aerodigestive tract is patent. No mucosal abnormality. No significant change Sinuses: Stable aeration. Orbits: Bilateral ocular lenses implants are appropriately located. Both globes are intact. Retrobulbar fat is preserved. Symmetric attenuation the optic nerves and ocular rectus muscles. Salivary glands:Stable attenuation. 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 Paraspinal muscles: Symmetric attenuation of the sternocleidomastoid muscles. Appropriate attenuation of the paraspinal muscles. Cervical spine:Vertebral body height is maintained. No fracture. No significant central canal stenosis or significant neural foraminal narrowing. Limited evaluation by technique. Upper mediastinum and lung apices: No significant interval change. CTA OF THE NECK WITH CONTRAST: Aorta: Stable atherosclerosis. Stable common origin of the carotid arteries. Right carotid artery: Stable atherosclerotic disease. No significant stenosis based upon NASCET criteria. Left carotid: Stable atherosclerotic disease. No significant stenosis based upon NASCET criteria. Stable mild narrowing of left carotid bifurcation and proximal internal carotid artery due to calcified and noncalcified plaque. Subclavian arteries:6 symmetric and patent Vertebral arteries:Redemonstration of a dominant right vertebral artery. 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 IMPRESSION: 1. No hemodynamically significant stenosis based upon NASCET criteria. 2. No significant interval change. CT cervical spine PROVIDED CLINICAL HISTORY: Left-sided hemianesthesia. Possible cervical stenosis. TECHNIQUE: Contiguous axial CT images are obtained through the cervical spine from the skull base to the T3 level. Sagittal and coronal reformatted images are provided. COMPARISON: None FINDINGS: Multilevel degenerative changes are seen in the cervical spine. There is narrowing of the intervertebral disc spaces extending from the C3-4 level to the C5-6 level and to a lesser extent at the C6-7 level. C2-3 level: No bony encroachment central spinal canal or neural foramina. C3-4 level: Broad-based disc osteophyte complex mildly effacing the ventral subarachnoid space. Uncinate process hypertrophy is present. There is mild/moderate right and moderate left-sided neural foraminal narrowing primarily related to bony encroachment. C4-5 level: Moderate endplate degenerative changes are present at this level. There is a broad-based disc osteophyte complex with prominent uncinate process hypertrophy on the right. There is effacement of ventral subarachnoid space with encroachment on the right anterolateral aspect of the spinal cord. Moderate right and mild left-sided neural foraminal narrowing are present related to bony encroachment. C5-6 level: Disc osteophyte complex is present which narrows the ventral subarachnoid space and encroaches on the anterior aspect of the spinal cord. Mild/moderate bilateral neural foraminal narrowing is present. C6-7 level: No significant central canal narrowing. Mild left-sided neural foraminal narrowing is present due to osteophyte formation laterally. Right neural foramen is patent. C7-T1 level: Central spinal canal and neural foramina are patent. No fracture or traumatic subluxation is seen involving the cervical spine. No prevertebral soft tissue swelling apparent. Visualized lung apices are clear aside from minimal biapical pleural and parenchymal scarring which is minimally calcified. Limited evaluation due to artifact extending through this region. No discrete nodule is able to be delineated. IMPRESSION: Degenerative changes seen throughout the cervical spine. Varying degrees of neural foraminal narrowing are present primarily related to bony encroachment as described above. No fracture or subluxation involving the cervical spine. Resuscitation Status: 07/13/20 15:48 Resuscitation Status Routine Resuscitation Status: FULL: Full Resuscitation Discussed with: Patient's Lab Results: 07/16/20 05:01 07/16/20 05:01 Vitals: Vital Signs (12 hours) Temp Pulse Resp BP BP Pulse Ox 07/21/20 11:33 97.3 F L 55 L 16 145/71 H 98 07/21/20 07:09 98.3 F 64 12 147/64 H 97 07/21/20 04:25 98.1 F 63 18 135/71 95 Weight Weight 150 lb 8 oz Most Recent Monitor Data Heart Rate from ECG 75 NIBP 122/56 NIBP BP-Mean 78 Respiration from ECG 12 SpO2 100 Physical Exam: The patient was seen and examined on the day of discharge. Problem Assessment: (1) TIA (transient ischemic attack)acute stroke resolved after TPA (2) Acute metabolic encephalopathy (3) HTN (hypertension) (4) HLD (hyperlipidemia) Plan of Treatment: Patient was started on diltiazem and will continue aspirin and statin. She is to follow-up with Dr. Quinn her business area director for consideration of further work-up of source of her stroke. Time Spent in discharge related activities (mins): 32 Plan Prescriptions: Diltiazem HCl [Cardizem CD] 180 mg PO DAILY #30 cap Home Medications: Medication Instructions Recorded Confirmed Type Carvedilol [Coreg] 6.25 mg PO BID 07/13/20 07/13/20 History Cholecalciferol (Vitamin D3) 1,000 units PO DAILY 07/13/20 07/13/20 History [Vitamin D3] Clopidogrel Bisulfate [Clopidogrel] 75 mg PO DAILY 07/13/20 07/13/20 History Cyclobenzaprine [Flexeril] 10 mg PO PRN PRN 07/13/20 07/13/20 History Rosuvastatin [Crestor] 20 mg PO HS 07/13/20 07/13/20 History Zolpidem Tartrate [Ambien] 10 mg PO HS 07/13/20 07/13/20 History Diltiazem HCl [Cardizem CD] 180 mg PO DAILY #30 cap 07/21/20 Rx Allergies: codeine Allergy (Verified 07/13/20 16:13) trifluoperazine [From Stelazine] Allergy (Verified 07/13/20 16:13) Activity:: Activity as Tolerated Nourishment:: Heart Healthy Diet, Low Sodium Diet Therapies:: Physical Therapy (Outpatient [facility]) Equipment/Supplies:: Walker (Already has at home) IV Therapy:: Not Applicable Referrals: NILES ISBELL NP [Primary Care Provider] - 7 Days Arvind Quinn MD [MD Not on Staff] - (Follow-up in 1 to 2 weeks to discuss possible LINQ for cryptogenic stroke) Disposition: HOME Quality CORE MEASURES:: Stroke/TIA Did you prescribe antithrombotic therapy?: Yes Did you prescribe anticoagulant for A Fib/Flutter?: No Specify reason for no DC anticoagulant: Treatment not indicated Did you prescribe a statin medication?: Yes
== END 2020-07-21 14:12 | disposition home or self-care (01) | DRG 61 ==
LOC: ERS 11:18 → CCU 13:51 → 2SE 07-14 20:59
PROVIDERS: ADMIT Internal Medicine; ATTEND Emergency Medicine
PROC: 3E03317 Introduction of Other Thrombolytic into Peripheral Vein, Percutaneous Approach (ICD-10-PCS; principal; 2020-07-13)
PROC: B24BZZ4 Ultrasonography of Heart with Aorta, Transesophageal (ICD-10-PCS; 2020-07-17)
DX: G45.9 Transient cerebral ischemic attack, unspecified (principal); G93.41 Metabolic encephalopathy; R47.01 Aphasia; Z20.822 Contact with and (suspected) exposure to COVID-19; I10 Essential (primary) hypertension; I25.10 Atherosclerotic heart disease of native coronary artery without angina pectoris; G83.14 Monoplegia of lower limb affecting left nondominant side; E78.5 Hyperlipidemia, unspecified; E78.00 Pure hypercholesterolemia, unspecified; E78.1 Pure hyperglyceridemia; F32.9 Major depressive disorder, single episode, unspecified; R20.0 Anesthesia of skin; Z88.5 Allergy status to narcotic agent; Z88.8 Allergy status to other drugs, medicaments and biological substances; Z79.899 Other long term (current) drug therapy; Z90.710 Acquired absence of both cervix and uterus
CPT/HCPCS: 0240U; 36415; 36416; 70450; 70496; 70498; 70551; 71045; 72125; 80048; 80053; 80061; 82306; 82533; 82550; 82607; 82746; 83036; 84443; 84484; 85025; 85610; 85730; 93005; 93306; 93312; 94760; 95712; 95819; 95957; 96365; 96366; 96374; 96375; 99292; J0360; J2060; J2270; J2405; J2704; J2997; Q9967

== ENCOUNTER 2023-02-02 13:15 | Outpatient (CLI) | payer MEDICARE ==
[2023-02-02 14:09] LABS: #Basophils 0.1 10x3/uL (0.0-0.2); #Eosinphils 0.3 10x3/uL (0.0-0.5); #Monocytes 0.5 10x3/uL (0.0-1.1); #Neutrophils 4.1 10x3/uL (1.5-8.4); %Basophils 0.8 % (0.0-2.0); %Eosinophils 4.3 % (0.0-6.0); %Lymphocytes 35.9 % (18.0-47.0); %Monocytes 6.5 % (0.0-10.0); %Neutrophils 52.4 % (40.0-75.0); Hemoglobin 12.9 g/dL (12.0-15.5); Mean Corpuscular HGB CONC 33.9 g/dL (32.0-36.0); Mean Corpuscular Hemoglobin 30.1 pg (27.0-33.0); Mean Corpuscular Volume 88.6 fl (81.6-98.3); Mean Platelet Volume 9.2 fl (7.4-10.4); Platelet Count 359 10x3/uL (150-450); RBC Distribution Width 13.5 % (11.5-14.5); Red Blood Cell (RBC) Count 4.29 10x6/uL (3.90-5.03); White Blood Cell (WBC) Count 7.8 10x3/uL (3.5-10.5)
[2023-02-02 14:31] LABS: ALT (SGPT) 13 U/L (8-55); AST (SGOT) 26 U/L (5-34); Albumin 4.4 g/dL (3.4-4.8); Alkaline Phosphatase 83 U/L (40-110); Anion Gap 15 mmol/L (10-20); BUN (Urea Nitrogen) 13 mg/dL (9.8-20.1); Bilirubin, Direct 0.3 mg/dL (0.1-0.3); Bilirubin, Total 0.9 mg/dL (0.2-1.2); Calc. Creatinine Clearance 0 mL/min (70-130); Calcium 9.4 mg/dL (7.8-10.44); Carbon Dioxide 23 mmol/L (23-31); Chloride 108 mmol/L (98-107); Estimated GFR 58; Globulin 2.7 g/dL (2.4-3.5); Glucose 109 mg/dL (83-110); Potassium 3.7 mmol/L (3.5-5.1); Protein, Total 7.1 g/dL (5.8-8.1); Sodium 142 mmol/L (136-145)
== END 2023-02-02 13:16 | disposition home or self-care (01) ==
LOC: LABBT 13:15
PROVIDERS: ATTEND Surgery
DX: Z01.818 Encounter for other preprocedural examination (principal); K85.10 Biliary acute pancreatitis without necrosis or infection
CPT/HCPCS: 80053; 80076; 85025; 93005; 93010

== ENCOUNTER 2023-02-06 06:51 | Day surgery (SDC) | payer MEDICARE ==
[2023-02-02 13:56] VITALS: BMI 20.7
[2023-02-06] MEDS ORDERED: Bupivacaine 0.25% HCL 30 ML VIAL ONE (08:32)
[2023-02-06] MEDS ORDERED: EPINEPHrine 1 MG/ML AMP ONE (08:32)
[2023-02-06] MEDS ORDERED: Iopamidol 30 ML ONE (08:33)
[2023-02-06] MEDS ORDERED: SUGAMMADEX SODIUM 200 MG/2 ML VIAL ONE (08:53)
[2023-02-06] MEDS ORDERED: fentaNYL 50 mcg/mL 1 mL Vial ONE ×3 (08:53→12:35)
[2023-02-06] MEDS ORDERED: cefOXitin 2 GM VIAL ONE (09:01)
[2023-02-06] MEDS ORDERED: Sodium Chloride 0.9% 100 ML ONE (09:01)
[2023-02-06] MEDS ORDERED: Ondansetron PF 4 MG/2 ML Vial ONE (09:22)
[2023-02-06] MEDS ORDERED: Naloxone HCl 0.4 mg/ml Vial ONE (09:22)
[2023-02-06] MEDS ORDERED: Lidocaine 1% PF 5 ML VIAL ONE (09:22)
[2023-02-06] MEDS ORDERED: Dexamethasone 20 MG/5 ML VIAL ONE (09:22)
[2023-02-06] MEDS ORDERED: PROPOFOL 200 MG/20 ML VIAL ONE (09:22)
[2023-02-06] MEDS ORDERED: Rocuronium Bromide 10 MG/ML (10ML VIAL) ONE (09:22)
[2023-02-06] MEDS ORDERED: HYDROcodone/Acetaminophen 5/325 mg Tablet ONE (14:17)
== END 2023-02-06 15:20 | disposition home or self-care (01) ==
LOC: SDC 06:51
PROVIDERS: ATTEND Surgery
PROC: 0FT44ZZ Resection of Gallbladder, Percutaneous Endoscopic Approach (ICD-10-PCS; principal; 2023-02-06)
PROC: BF13YZZ Fluoroscopy of Gallbladder and Bile Ducts using Other Contrast (ICD-10-PCS; 2023-02-06)
DX: K85.10 Biliary acute pancreatitis without necrosis or infection (principal); K81.1 Chronic cholecystitis; I10 Essential (primary) hypertension; E78.5 Hyperlipidemia, unspecified; Z79.82 Long term (current) use of aspirin; Z79.899 Other long term (current) drug therapy; Z90.710 Acquired absence of both cervix and uterus; Z90.89 Acquired absence of other organs; Z87.891 Personal history of nicotine dependence; Z88.5 Allergy status to narcotic agent; Z88.8 Allergy status to other drugs, medicaments and biological substances; Z91.018 Allergy to other foods
CPT/HCPCS: 47532; 47563; C1889; J3010; 88304; J0171; J0694; J1100; J2310; J2405; J2704; J3490; Q9967; S0020